=== PATIENT | male | born 1945 | race Caucasian/White ===

== ENCOUNTER → 2020-05-27 11:03 | Outpatient (BNVA) | payer MEDICARE, SELFPAY | PROVIDERS: PCP Pediatrics; Visit Provider Surgery Vascular Surgery | DX: I71.2 Thoracic aortic aneurysm, without rupture (principal) | CPT/HCPCS: 99202; 99212 ==

== ENCOUNTER 2020-06-03 10:29 | Outpatient (REF) | payer MEDICARE, SELFPAY ==
--- NOTE | 2020-06-03 10:31 | CT_ITS ---
EXAMINATION: CT CHEST WITHOUT CONTRAST CLINICAL INFORMATION: Thoracic aorta aneurysm without rupture. COMPARISON: Chest CT from 06/20/2018. TECHNIQUE: Multidetector volumetric CT imaging of the chest was done. Axial MIP volume rendering provided. Sagittal and coronal reformatted images were obtained. This CT examination was performed using dose optimization techniques as appropriate, variously including the following: *Automated exposure control *Adjustment of mA and/or kV according to patient size (this includes techniques or standardized protocols for targeted exams where dose is matched to indication/reason for exam; i.e. extremities or head) *Use of iterative reconstruction technique DLP: 227 mGy-cm FINDINGS: LUNGS AND PLEURA: Trachea and central airways are widely patent and normal in caliber. No pulmonary mass, consolidation or pleural effusion. The aeration of the left lower lobe has improved compared to 06/20/2018. A peripheral focus of residual atelectasis and/or focal fibrosis is present in the left lower lobe. There are a few old noncalcified and calcified bilateral pulmonary nodules, including 0.3 cm nodule of the lateral right upper lobe (image 180, series 7), and a nodule measuring nearly 0.4 cm in the anterior left upper lobe (image 112, series 7). No new nodules. No pleural effusion or pneumothorax. CARDIOVASCULAR: Mild atherosclerotic calcification of coronary arteries. Cardiac chambers and pulmonary arteries are normal in size. The aortic root measures 3.1 cm, and sinotubular junction 3 cm. At the level of the right pulmonary artery, the mildly dilated ascending aorta is 4.1 cm transverse, 4.1 cm AP (compared to 3.9 x 3.9 cm on 06/20/2018). Distal to the takeoff of the left subclavian artery, aortic arch is 2.9 cm. The descending aorta is tortuous. The proximal and distal descending aorta measure 3 cm and 2.7 cm short axis diameter, respectively. MEDIASTINUM AND LOWER NECK: Thyroid gland is atrophied. Moderate-sized sliding-type hiatal hernia of the stomach. No mediastinal mass. LYMPHATICS: No lymphadenopathy. UPPER ABDOMEN: Adrenal glands are normal. 2.9 cm simple cortical cyst at the upper pole of the left kidney. 1.2 cm simple cyst in the left lobe of the liver. There are several other small hypodense foci in the liver that are likely cysts but are difficult to definitively characterize. SKELETAL AND CHEST WALL: Chronic multilevel degenerative disc disease and hyperkyphosis of the thoracic spine. No aggressive osseous lesions. Old, healed fractures of the left posterior ninth and 10th ribs. Old bone island of the left posterior eighth rib. Mild osteoarthritis of bilateral glenohumeral and sternoclavicular joints. CT/CT chest wo con IMPRESSION: * The ectatic ascending thoracic aorta is 4.1 cm diameter, compared to 3.9 cm on 06/20/2018. * Small, benign calcified and noncalcified pulmonary nodules (stable compared to 06/20/2018). No new nodules. * Moderate sized hiatal hernia.
== END 2020-06-03 10:30 | disposition home or self-care (01) ==
LOC: HO.CT 10:29
PROVIDERS: Visit Provider Surgery Vascular Surgery
DX: I71.2 Thoracic aortic aneurysm, without rupture (principal)
CPT/HCPCS: 71250

== ENCOUNTER 2020-09-27 07:34 | Outpatient (REF) | payer MEDICARE, SELFPAY ==
[2020-09-27 10:31] LABS: SARS COV2 PCR INHOUSE NEGATIVE (Negative)
== END 2020-09-27 07:35 | disposition home or self-care (01) ==
LOC: HO.LAB 07:34
PROVIDERS: Visit Provider Internal Medicine
DX: Z20.822 Contact with and (suspected) exposure to COVID-19 (principal)
CPT/HCPCS: C9803; U0003

== ENCOUNTER 2024-08-18 10:29 | Outpatient (AMB) | payer MEDICARE, SELFPAY ==
--- NOTE | 2024-08-18 10:50 | MHC.OFFVIS ---
Vital Signs 08/18/24 10:59 Height 5 ft 11 in Weight 171 lb BMI 23.8 BP 134/75 Blood Pressure Location Rt brachial Position Sitting Pulse 70 Intake Visit Reasons: Skin Cancer on leg Intake Note: Patient referred by Dr. Miles for skin CA on rt leg. Reports lesion was present for 2yrs. Patient c/o: yellowish discharge. Wound care once a week. Bx report: 07-30-2024. Patient Care Specialist Required: No Accompanied by: spouse Malaika Allergies No Known Allergies [No Known Allergies*] Allergy (Verified 08/18/24 10:56) HPI Comments Details: Patient presents with a significant other. He has had a roughly 2 year history of a growth involving the anteromedial aspect of his right mid leg. He originally thought it was related to his heart/bypass surgery but this is not the case. He has no such lesions elsewhere. This has progressed and increased in size, and the patient and his significant other would like to have this removed. He has no such lesions elsewhere. 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 Social History (Updated 08/18/24 @ 10:59 by THIEN Jaimes) Alcohol intake: current Alcohol intake frequency: holidays/special occasions only Alcohol type: wine Patient Tobacco Use Status: Never used Tobacco Physical Exam Vital Signs: Last Vital Signs Pulse 70 08/18/24 10:59 BP 134/75 08/18/24 10:59 BMI result Body Mass Index 23.8 Chest Other: Chest sounds bilaterally, HS 1 in 2 GI Other: Abdomen is soft, benign Extrem Other: Patient has an exophytic ill-defined margin growth involving his anteromedial aspect of his right leg consistent with either basal cell or squamous cell carcinoma. Assessment & Plan Assessment & Plan (1) Skin cancer: Code(s): C44.90 - Unspecified malignant neoplasm of skin, unspecified Category: Surgical Plan Risks, benefits, alternatives of excision of this right leg skin tumor were reviewed with the patient and his significant other and included but not limited to bleeding, infection, recurrence, numbness, pain, scarring, and the patient wishes to proceed. All questions answered. Arrangements were made for this on a day which is convenient for him. Coding Level of Care Code New Pt Level 5 (31970) Diagnoses Skin cancer C44.90
[2024-08-18 10:59] VITALS: BP 134/75; PULSE 70; BMI 23.8
--- OUTSIDE RECORDS SUMMARY | 2024-08-18 11:47 | XMS_ITS | Clinical Summary ---
Author Organization [facility] [address] [facility] Address [address] [place] [address] Phone Care Team Providers Care Boat Engines Installer Name Role Phone Nydia Rai MD Primary Care Provider [phone] Allergies Active Allergy Reactions Criticality Noted Date Comments Pollen Extracts Unknown 03/15/2010 Medications coconut oiL 1,000 mg capsule Take by mouth. Active cyanocobalamin (VIT B-12) 1,000 mcg tablet extended release ER tablet Take 0.1 mg by mouth. Active yeaai-ze6-viv-e [id number] 1000-130(40-80) mg capsule Take by mouth. Active multivitamin (MULTI-DAY ORAL) Take 1 tablet by mouth. Active thiamine 100 mg tablet Take 1 tablet (100 mg total) by mouth 1 (one) time each day. Active Abrysvo 120 mcg/0.5 mL recon soln 04/12/2023 Active coenzyme Q-10 100 mg capsule Take 1 capsule (100 mg total) by mouth. Active metoprolol succinate (TOPROL-XL) 25 mg 24 hr tablet Take 0.5 tablets (12.5 mg total) by mouth. 12/15/2022 Active levETIRAcetam (KEPPRA) 500 mg tablet Take 1 tablet (500 mg total) by mouth 2 (two) times a day. Active diazePAM (VALIUM) 2 mg tablet Take 1 tablet (2 mg total) by mouth. Active clopidogreL (PLAVIX) 75 mg tablet Take 1 tablet (75 mg total) by mouth 1 (one) time each day. 12/15/2022 Active baclofen (LIORESAL) 10 mg tablet Take 1 tablet (10 mg total) by mouth. Active aspirin 81 mg EC tablet Take 1 tablet (81 mg total) by mouth 1 (one) time each day. 06/20/2022 Active ascorbic acid, vitamin C, 500 mg capsule Take by mouth. Active acetaminophen (TYLENOL) 325 mg tablet Take 2 tablets (650 mg total) by mouth. 12/02/2019 Active cholecalciferol (VITAMIN D-3) 10 mcg (400 unit) capsule Take 1 capsule (400 Units total) by mouth. Active furosemide (LASIX) 40 mg tablet TAKE 1 TABLET BY MOUTH DAILY NEEDED FOR SWELLING 90 tablet 06/19/2024 Active atorvastatin (LIPITOR) 80 mg tablet Take 1 tablet (80 mg total) by mouth 1 (one) time each day. 90 tablet 07/14/2024 Active omeprazole (PriLOSEC) [address] capsule Take 1 capsule (20 mg total) by mouth 1 (one) time each day. 90 capsule 07/14/2024 Active Active Problems Problem Noted Date Diagnosed Date Urinary tract infection, site not specified 11/2022 Overview (09/03/2023): hosp 07/17 urosepsis Weakness 07/19/2022 CAD (coronary artery disease) 07/05/2022 S/P CABG x 4 07/05/2022 Overview (09/03/2023): Done at [facility] on 05/23/22 with Raphael Barton - indications: CAD, NSTEMI SVT (supraventricular tachycardia) 07/05/2022 NSTEMI (non-ST elevated myocardial infarction) 1 07/24/2021 Overview (09/03/2023): Hosp 05/16. 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 06/11. Neurology [facility] [place]. IVIG Stiffman syndrome 05/31/2018 Overview (09/03/2023): Last Assessment & Plan: I think the diagnosis is correct, this is stiff person syndrome with elevated biju 65. It is frequently modestly responsive to IVIG, and he has improved after his initial dosing and one maintenance dose. He will continue to get monthly treatment and if his symptoms improved dramatically, that can be discontinued. We will then have to decide if a steroid sparing immunosuppressant is warranted for the longer term. Pain of right lower extremity 05/20/[address] scan, chest 07/23/2017 Overview (09/03/2023): 07/12. Abnormal bronchial thickening. 02/09 Stable, benign Dyspnea 12/29/2016 Overview (09/03/2023): 02/08- normal PFT 11/08 following episode pneumonia Echo neg. Mibi neg (7 mets), CT neg. H/O agent Forbes exposure 11/28/2016 Ascending aorta dilation 11/21/2016 Overview (09/03/2023): Seen on echocardiogram. 4.2 cm follow-up CT scan ordered 11/08 CT 12/09. 4.2 cm 06/10 stable. Recheck 1 yr 08/12 following with vascular surgery Dr. Jorgensen/Emanuel 02/09 CT stable. Recheck 12 months Per pt MRI 05/14 Abnormal CBC 10/26/2016 Overview (09/03/2023): 11/08- Myelocytes, suggestive of underlying viral infection- recheck at upcoming visit. Erectile dysfunction 12/07/2010 GERD (gastroesophageal reflux disease) 01/09/200 8 Overview (09/03/2023): 12/03---trial off med, sx recurred---need chronic omeprazole Allergic rhinitis 11/28/2005 Anemia 11/28/2005 Overview (09/03/2023): 1997--ulcer due to asa--GI rec no asa--continued due to strong FH CAD IMO Update Fall 2015 Chest pain 11/28/2005 Overview (09/03/2023): cath neg 12/09- neg nuclear stress test Genital herpes 11/28/2005 Overview (09/03/2023): Famvir prn IMO update Pure hypercholesterolemia 11/28/2005 Encounters Date Type Department Care Team Description 07/10/2024 Telephone [employer] - [facility] [address] [place] [address] Mendy Cifuentes [place] Medicare Annual Wellness Visit Subsequent (AWV DUE 2024) 06/23/2024 Telephone Adult Medicine - [place] [address] [place] [address] Nydia Rai MD orders 05/28/2024 Telephone Adult Medicine - [place] [address] [place] [address] Nydia Rai MD from Last 3 Months Surgical History Surgery Date Site/Laterality Comments COLONOSCOPY 12/03/2012 PROCEDURE: HISTORICAL COLONOSCOPY; COMMENT: adenomas; repeat in 3 yrs COLONOSCOPY 01/12/2017 PROCEDURE: HISTORICAL COLONOSCOPY; COMMENT: adenoma and tics; repeat in 5 yrs OTHER SURGICAL HISTORY PROCEDURE: HISTORICAL MELANOMA ESOPHAGOGASTRODUODENOSCOPY PROCEDURE: GA EGD TRANSORAL BIOPSY SINGLE/MULTIPLE; COMMENT: Performed in 2013 with colonoscopy CORONARY ARTERY BYPASS GRAFT 04/2022 PROCEDURE: HISTORICAL CABG CORONARY ARTERY BYPASS GRAFT 05/2022 PROCEDURE: HISTORICAL CABG Medical History Medical History Date Comments Abnormal CBC 10/26/2016 DX:Abnormal CBC; COMMENT: 11/08- Myelocytes, suggestive of underlying viral infection- recheck at upcoming visit. Abnormal CT scan, chest 07/23/2017 DX:Abnor mal CT scan, chest; COMMENT: 07/12. Abnormal bronchial thickening. 02/09 Stable, benign Allergic rhinitis 11/28/2005 DX:Allergic rh initis Anemia 11/28/2005 DX:Anemia; COMME NT: 1997--ulcer due to asa--GI rec no asa--continued due to strong FH CAD IMO Update Fall 2015 Ascending aorta dilation (CMS/HCC) 11/21/2016 DX:Ascending aorta dilation (HCC); COMMENT: Seen on echocardiogram. 4.2 cm follow-up CT scan ordered 11/08 CT 12/09. 4.2 cm 06/10 stable. Recheck 1 yr 08/12 following with vascular surgery Dr. Jorgensen/Emanuel 02/09 CT stable. Recheck 12 months Chest pain 11/28/2005 DX:Chest pain; C OMMENT: cath neg 12/09- neg nuclear stress test Special screening for malign ant neoplasms, colon 11/28/2005 DX:Special screening for mal ignant neoplasms, colon; COMMENT: 1990--small adenoma 02/26--next 12/06 adenoma x 3. Repeat 3 yrs 01/08. Colonoscopy. Polyp---. Repeat 5 yrs Diverticulosis 09/03/2018 DX:Diverticulosi s Dyspnea 12/29/2016 DX:Dyspnea; COMM ENT: 02/08- normal PFT 11/08 following episode pneumonia Echo neg. Mibi neg (7 mets), CT neg. Erectile dysfunction 12/07/2010 DX:Erectile dysfunction Family history of ischemic h eart disease 11/28/2005 DX:Family history of ischemi c heart disease; COMMENT: father and numerous brothers Genital herpes 11/28/2005 DX:Genital herpe s; COMMENT: Famvir prn IMO update GERD (gastroesophageal reflu x disease) 01/10/2008 DX:GERD (gastroesophageal re flux disease); COMMENT: 12/03---trial off med, sx recurred---need chronic omeprazole H/O agent Forbes exposure 11/28/2016 DX:H/O agent [place] exposure History of basal cell carcinoma 02/06/2011 DX:History of basal cell carcinoma; COMMENT: BCC 12/06 back (nodular & superficial) 02/02 chest (nodular) Kidney cyst, acquired 07/04/2018 DX:Kidney cyst, acquired; COMMENT: 05/12- [facility], left incidental finding on lumbar MRI 07/13- appear benign on renal ultrasound, clear, exophytic cysts Malignant neoplasm of prosta te (CMS/HCC) 06/12/2006 DX:Malignant neoplasm of pro state (HCC); COMMENT: 05/30--5.2--prostate cancer--TURP 10/29 Peripheral neuropathy 09/03/2018 DX:Periphe ral neuropathy; COMMENT: 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 06/11. neurology Agent orange exposure DX:Agent o range exposure Prostate cancer (CMS/HCC) DX:Pro state cancer (HCC) History of prostate cancer DX:Hi story of prostate cancer Tubular adenoma of colon DX:Tubu lar adenoma of colon CAD (coronary artery disease) 07/05/2022 DX :CAD (coronary artery disease) Family History Medical History Relation Name Comments Heart attack Brother Heart attack Father Coronary artery disease Mother Hypertension Other 1 Heart attack Other 2 Relation Name Status Comments Brother Father Mother Other 1 Other 2 Social History Tobacco Use Types Packs/Day Years Used Date Smoking Tobacco: Former Cigarettes Q uit: 06/25/1969 Smokeless Tobacco: Never Alcohol Use Standard Drinks/Week Comments Yes 0 (1 standard drink = 0.6 oz pur e alcohol) Sex and Gender Information Value Date Recorded Sex Assigned at Not on file Legal Sex Male 8:09 PM EST Gender Identity Not on file Sexual Orientation Not on file Obstetrics History Last Filed Vital Signs Vital Sign Reading Time Taken Comments Blood Pressure 96/52 12/31/2023 10:42 AM EDT Pulse 65 12/31/2023 10:42 AM EDT Temperature - - Respiratory Rate - - Oxygen Saturation - - Inhaled Oxygen Concentration - - Weight 72 kg (158 lb 12.8 oz) 12/31/2023 10:42 A M EDT Height 180.3 cm (5' 11 ) 12/31/2023 10:42 AM EDT Body Mass Index 22.15 12/31/2023 10:42 AM EDT Plan of Treatment Upcoming Encounters Date Type Department Care Team (Late st Contact Info) Description 08/21/2024 2:30 PM EST Office Visit Orthopedic Surgery - [place] [address] [address] Sergio Carrillo, DPM [address] [address] 08/26/2024 9:45 AM EST Office Visit Adult [facility] [address] [place] [address] William Sandoval PA [address] [place] [address] 01/05/2025 9:00 AM EDT Office Visit Adult Medicine [facility] [address] [place] [address] Nydia Rai MD [address] [place] [address] Health Maintenance Due Date Last Done Comments RSV Immunization Patients 60+ Years Old (1 - 1-dose 75+ series) 2021 Depression Screening 06/03/2022 Falls Risk Assessment 06/03/2022 Medicare Annual Wellness Visit 06/03/2022 Social Influencers of Health Screening 06/03/2022 COVID-19 Vaccine ( season) 2024 12/19/2021, 05/23/2021, 09/14/2020, Additional history exists Hypertension/CHF/CAD Annual BMP Blood Test 12/24/2024 12/25/2023, 09/29/2020, 09/01/2020, Additional history exists Colorectal Cancer Screening: Colonoscopy 01/12/2027 01/12/2017 Cholesterol Screening (Lipid Panel) 12/24/2028 12/25/2023, 12/19/2022 DTaP,Tdap,and Td Vaccines (4 - Td or Tdap) 03/11/2030 03/11/2020, 12/30/2009, 12/30/2009 Hepatitis C Screening Completed 06/16/2013 Pneumococcal Vaccine: 50+ Years Completed 11/19/2015, 06/14/2012, 06/14/2012 Zoster Vaccines Completed 04/05/2021, 01/24/2021 Influenza Vaccine Completed 04/07/2024, , 02/21/2022, Additional history exists HIB Vaccines Aged Out No longer eligi ble based on patient's age to complete this topic HPV Vaccines Aged Out No longer eligi ble based on patient's age to complete this topic Hepatitis A Vaccines Aged Out No long er eligible based on patient's age to complete this topic Hepatitis B Vaccines Aged Out No long er eligible based on patient's age to complete this topic IPV Vaccines Aged Out No longer eligi ble based on patient's age to complete this topic MMR Vaccines Aged Out No longer eligi ble based on patient's age to complete this topic Meningococcal ACWY Vaccine Aged Out N o longer eligible based on patient's age to complete this topic Meningococcal B Vacine Aged Out No lo nger eligible based on patient's age to complete this topic RSV Immunization Patients Under 20 months Aged Out No longer eligible based on patient's age to complete this topic Varicella Vaccines Aged Out No longer eligible based on patient's age to complete this topic Procedures Procedure Name Priority Date/Time Associated Diagnosis Comments LIPID PANEL Routine 12/19/2022 COLONOSCOPY Routine 01/12/2017 HEPATITIS C SCREENING Routine 06/16/2013 from Last 3 Months or Most Recently Relevant to Health Maintenance Results * Lipid panel (12/19/2022) Pathologist [facility] LDL/HDL Ratio 3 Triglycerides 63 mg/dL Cholesterol 135 mg/dL HDL 54 mg/dL LDL Cholesterol 69 mg/dL Blood Venous blood specimen / Unknown Historical Provider LAB BLOOD ORDERABLES Patsy l Result * Colonoscopy (01/12/2017) Pathologist [facility] Colonoscopy return in 5 years Anatomical Region Laterality Modality Other [facility] Provider HEALTH MAINTENANCE Final Result * Hepatitis C Screening (06/16/2013) [facility] Hepatitis C Screening negative [facility] Provider HEALTH MAINTENANCE Final Result from Last 3 Months or Most Recently Relevant to Health Maintenance Insurance MEDICARE [facility] Care Teams Boat Engines Installer Relationship Specialty Start Date End Date Nydia Rai MD [address] [place] [id number] PCP - General 12/18/1995
--- OUTSIDE RECORDS SUMMARY | 2024-08-18 11:47 | XMS_ITS | Encounter Summary ---
Author Organization [facility] [place] [address] Care Team Providers Care Die Stamping Press Operator Name Role Phone Nydia Rai MD Primary Care Provider [phone] Reason for Visit * Reason Onset Date Comments Medicare Annual Wellness Visit Subsequent 2024 AWV DUE 2024 Encounter Details Date Type Department Care Team (Late st Contact Info) Description 07/10/2024 Telephone [employer] - [facility] [address] [place] [phone] Mendy Cifuentes [place] Medicare Annual Wellness Visit Subsequent (AWV DUE 2024) Social History Tobacco Use Types Packs/Day Years [...] on file Sexual Orientation Not on file documented as of this encounter Progress Notes * Mendy Cifuentes [place] - 07/10/2024 4:15 PM EST Message left for patient to contact the Quality Department in reference to booking an Annual Wellness Visit appt misty/Kirti Wellness Nurse in 2024. Transfer to Mendy Cifuentes @ [id number]. Patient is on the March/2024 report. documented in this encounter Plan of Treatment Upcoming Encounters Date Type Department Care Team (Late st Contact Info) Description 08/21/2024 2:30 PM EST Office Visit Orthopedic Surgery - [place] [address] [address] Sergio Carrillo DPPaige [address] [address] 08/26/2024 9:45 AM EST Office Visit Adult Medicine [facility] [address] [place] [address] William Sandoval PA [address] [place] [address] 01/05/2025 9:00 AM EDT Office Visit Adult Medicine [facility] [address] [place] [address] Nydia Rai MD [address] [place] [address] documented as of this encounter Visit Diagnoses Not on filedocumented in this encounter Care Teams Die Stamping Press Operator Relationship Specialty Start Date End Date Nydia Rai MD [address] [place] [address] PCP - General 12/18/1995 documented as of this encounter
== END 2024-08-18 11:13 | disposition home or self-care (01) ==
PROVIDERS: PCP Pediatrics; Referring Provider Surgery; Visit Provider Surgery
DX: C44.90 Unspecified malignant neoplasm of skin, unspecified (principal)
CPT/HCPCS: 99204

== ENCOUNTER → 2024-08-18 10:29 | Outpatient (BNVA) | payer MEDICARE, SELFPAY | PROVIDERS: PCP Pediatrics; Referring Provider Surgery; Visit Provider Surgery | DX: C44.90 Unspecified malignant neoplasm of skin, unspecified (principal) | CPT/HCPCS: 99202 ==

== ENCOUNTER 2024-08-18 15:57 | Outpatient (RCR) | payer MEDICARE, SELFPAY | END 2024-09-18 15:20 | disposition short-term general hospital (02) | LOC: HO.WCC 15:57 | PROVIDERS: PCP Pediatrics; Visit Provider Surgery | DX: I87.311 Chronic venous hypertension (idiopathic) with ulcer of right lower extremity (principal); L97.812 Non-pressure chronic ulcer of other part of right lower leg with fat layer exposed; C44.712 Basal cell carcinoma of skin of right lower limb, including hip; L98.0 Pyogenic granuloma; G25.82 Stiff-man syndrome; I25.2 Old myocardial infarction; Z87.891 Personal history of nicotine dependence | CPT/HCPCS: 11106; 88304; 88305; 99212 ==

== ENCOUNTER 2024-10-10 05:52 | Day surgery (SDC) | payer MEDICARE, SELFPAY ==
--- OUTSIDE RECORDS SUMMARY | 2024-09-23 09:20 | XMS_ITS | Encounter Summary ---
Author Organization [facility] Address [address] [place] [address] Care Team Providers Care Tube Dispatcher Name Role Phone Nydia Rai MD Primary Care Provider [phone] Reason for Referral * Imaging (Routine) - Closed Specialty Diagnoses / Procedures Referred By Contac t Referred To Contact Cardiology Diagnoses Coronary artery disease, unspecified vessel or lesion type, unspecified whether angina present, unspecified whether lower brule or transplanted heart Procedures Transthoracic echocardiogram (TTE) complete with PRN contrast, bubble, strain, and 3D order panel AL TTE W 2D IMAGE COMPLETE W DOPPLER ECHO & COLOR FLOW DOPPLER ECHO AL REFUGIO 2D COMPLETE W/CONTRAST OR W & WO CONTRAST WITH DOPPLER Donavon Aguiar NP [address] [place] [address] [address] [place] [address] Phone: tel: fax: [facility] Referral ID Status Reason Start Date Expiration Date Visits Re quested Visits Authorized [id number] Closed 09/11/2024 09/11/2025 1 1 Reason for Visit * Reason Comments Follow-up Encounter Details Date Type Department Care Team (Latest Contact Info) Description 09/11/2024 12:40 PM EDT Consult [facility] Cardiology [facility] [address] [place] [phone] Donavon Aguiar NP [address] [place] [address] [place] [address] Preop cardiovascular exam (Primary Dx); Coronary artery disease, unspecified vessel or lesion type, unspecified whether angina present, unspecified whether lower brule or transplanted heart; Pure hypercholesterolemia Social History Tobacco Use Types Packs/Day Years [...] on file documented as of this encounter Last Filed Vital Signs Vital Sign Reading Time Taken Comments Blood Pressure 100/68 09/11/2024 12:25 PM EDT Pulse 73 09/11/2024 12:25 PM EDT Temperature - - Respiratory Rate - - Oxygen Saturation 97% 09/11/2024 12:25 PM EDT Inhaled Oxygen Concentration - - Weight 78.9 kg (174 lb) 09/11/2024 12:25 PM EDT Height 180.3 cm (5' 11 ) 09/11/2024 12:25 PM EDT Body Mass Index 24.27 09/11/2024 12:25 PM EDT documented in this encounter Ordered Prescriptions Prescription Sig Dispense Quantity Refills Last Filled Start Date End Date metoprolol succinate (TOPROL-XL) 25 mg 24 hr tabletIndications: Coronary artery disease, unspecified vessel or lesion type, unspecified whether angina present, unspecified whether lower brule or transplanted heart Take 0.5 tablets (12.5 mg total) by mouth 2 (two) times a day. 90 tablet 3 09/11/2024 atorvastatin (LIPITOR) 80 mg tabletIndications: Coronary artery disease, unspecified vessel or lesion type, unspecified whether angina present, unspecified whether lower brule or transplanted heart Take 1 tablet (80 mg total) by mouth 1 (one) time each day. 90 tablet 3 09/11/2024 clopidogreL (PLAVIX) 75 mg tabletIndications: Coronary artery disease, unspecified vessel or lesion type, unspecified whether angina present, unspecified whether lower brule or transplanted heart Take 1 tablet (75 mg total) by mouth 1 (one) time each day. 90 tablet 3 09/11/2024 documented in this encounter Progress Notes * Donavon Aguiar NP - 09/11/2024 12:40 PM EDTAssociated Problem(s): CAD (coronary artery disease) Underwent successful four vessel CABG in 2021. He has preserved LV systolic function on 2021 echocardiogram. No anginal symptoms. Will update echocardiogram due to lower blood pressure, but otherwisethis condition is stable. Continue with aspirin, atorvastatin and metoprolol. We discussed risk reduction through lifestyle choices including healthy diet, routine exercise and weight management. Orders: ECG 12 lead atorvastatin (LIPITOR) 80 mg tablet; Take 1 tablet (80 mg total) by mouth 1 (one) time each day. metoprolol succinate (TOPROL-XL) 25 mg 24 hr tablet; Take 0.5 tablets (12.5 mg total) by mouth 2 (two) times a day. Transthoracic echocardiogram (TTE) complete with PRN contrast, bubble, strain, and 3D order panel; Future * Donavon Aguiar NP - 09/11/2024 12:40 PM EDTAssociated Problem(s): Pure hypercholesterolemia August 2024 - LDL 68. Continue with atorvastatin. * Donavon Aguiar NP - 09/11/2024 12:40 PM EDTAssociated Problem(s): Preop cardiovascular exam Per the Bruce cardiac risk index the patient is low risk for upcoming procedure. More recently has had lower blood pressures which is rather unusual for him without a clear cause -good p.o. intake, no medication changes and no other cardiac symptoms. I am recommending an echocardiogram which she will get this afternoon. If this has no significant abnormalities then he is good from our standpoint to move forward with his surgery. He may hold his aspirin if necessary but otherwise he should continue it. He should remain on metoprolol perioperatively. Please avoid large fluid shifts, sustained tachycardia or profound anemia in order to prevent demand ischemic events. * Donavon Aguiar NP - 09/11/2024 12:40 PM EDT Images from the original note were not included. 09/18/24 - Reviewed echocardiogram and this showed preserved LV systolic function with no major valve issues. No reasons based on this study to avoid surgery. Please see preop cardiovascular exam section below for other recommendations, but essentially is able to proceed with surgery. [facility] PRIMARY JAVA LEAD ARCHITECT: Dejuan Joyce MD PCP: Nydia Rai MD HPI: I have obtained verbal consent from Tanner Renee Hoffman prior to the recording. I have advised Tanner Lepeley that he may refuse the recording and require the recording to be turned off at any time duringthis encounter. History of Present Illness Mr. Hoffman is a 78-year-old male with past medical history of coronary artery disease status post NSTEMI with subsequent urgent four-vessel coronary artery bypass grafting with MTZ to LAD, SVG to PDA, SVG to OM and SVG to diagonal, stiff man syndrome, history of urosepsis, hyperlipidemia, prostatecancer status post prostatectomy, and remote smoking history. Today the patient presents for a preoperative cardiovascular evaluation. He reports no cardiac symptoms of concern. However, he has experienced elevated blood pressure readings, with a recent readingof 127/78, which is a significant increase from his usual range in the low 100s. He is not experiencing any associated symptoms such as lightheadedness, dizziness, or wooziness. His weight has been gradually increasing at a rate of approximately 1 pound every 1.5 months. He reports no changes in his medication regimen or doubling up on medications. His mobility is limited due to his leg condition, making it difficult for him to ascend a flight of stairs. He reports no systemic symptoms such as fevers, chills, sweats, or signs of infection. He has been adhering to his prescribed medication regimen, which includes furosemide once daily and metoprolol half a tablet twice daily. His appetite and hydration status remain unchanged. He reports no chest pain, pressure, palpitations, or fluttering sensations. He has a basal cell carcinoma on his leg that needs to be removed. He has noticed pus coming from the wound. He has been advised to consult a catering service manager due to concerns about his platelet count. He is currently not on clopidogrel, having discontinued it in 04/2023 after a year of use. He is currently on aspirin therapy. He has observed swelling in his ankles, which has persisted for over a month. The use of pressure stockings has not resulted in significant improvement. No chest pain, palpitations, lightheadedness, presyncope or syncope. No orthopnea, paroxysmal nocturnal dyspnea, abdominal distention, cough or abrupt increases in weight. The patient reports adherence with their medications. ACTIVE MEDICATIONS: Outpatient Medications Marked as Taking for the 09/11/24 encounter (Consult) with Donavon Aguiar NP Medication Sig Dispense Refill Abrysvo 120 mcg/0.5 mL recon soln acetaminophen (TYLENOL) 325 mg tablet Take 2 tablets (650 mg total) by mouth. ascorbic acid, vitamin C, 500 mg capsule Take by mouth. aspirin 81 mg EC tablet Take 1 tablet (81 mg total) by mouth 1 (one) time each day. Take 1 tablet (81 mg total) by mouth 1 (one) time each day. 90 tablet 1 atorvastatin (LIPITOR) 80 mg tablet Take 1 tablet (80 mg total) by mouth 1 (one) time each day. 90 tablet 3 baclofen (LIORESAL) 10 mg tablet Take 1 tablet (10 mg total) by mouth 3 (three) times a day. cholecalciferol (VITAMIN D-3) 10 mcg (400 unit) capsule Take 1 capsule (400 Units total) by mouth. coenzyme Q-10 100 mg capsule Take 1 capsule (100 mg total) by mouth. diazePAM (VALIUM) 2 mg tablet Take 1 tablet (2 mg total) by mouth 2 (two) times a day. furosemide (LASIX) 40 mg tablet Take 1 tablet (40 mg total) by mouth 1 (one) time each day if needed (prn for swelling). TAKE 1 TABLET BY MOUTH DAILY NEEDED FOR SWELLING (Patient taking differently: Take 1 tablet (40 mg total) by mouth 1 (one) time each day. TAKE 1 TABLET BY MOUTH DAILY NEEDED FOR SWELLING) 90 tablet 1 levETIRAcetam (KEPPRA) 500 mg tablet Take 1 tablet (500 mg total) by mouth 2 (two) times a day. metoprolol succinate (TOPROL-XL) 25 mg 24 hr tablet Take 0.5 tablets (12.5 mg total) by mouth 2 (two) times a day. 90 tablet 3 multivitamin (MULTI-DAY ORAL) Take 1 tablet by mouth. omeprazole (PriLOSEC) [address] capsule Take 1 capsule (20 mg total) by mouth 1 (one) time each day.90 capsule 0 thiamine 100 mg tablet Take 1 tablet (100 mg total) by mouth 1 (one) time each day. [DISCONTINUED] atorvastatin (LIPITOR) 80 mg tablet Take 1 tablet (80 mg total) by mouth 1 (one) time each day. 90 tablet 1 [DISCONTINUED] clopidogreL (PLAVIX) 75 mg tablet Take 1 tablet (75 mg total) by mouth 1 (one) time each day. [DISCONTINUED] clopidogreL (PLAVIX) 75 mg tablet Take 1 tablet (75 mg total) by mouth 1 (one) time each day. 90 tablet 3 [DISCONTINUED] metoprolol succinate (TOPROL-XL) 25 mg 24 hr tablet Take 0.5 tablets (12.5 mg total)by mouth 2 (two) times a day. PAST MEDICAL HISTORY: Patient Active Problem List Diagnosis Date Noted Date Diagnosed Preop cardiovascular exam 09/11/2024 Urinary tract infection, site not specified 07/31/2022 hosp 07/17 urosepsis Weakness 07/19/2022 CAD (coronary artery disease) 07/05/2022 - NSTEMI with subsequent urgent four-vessel coronary artery bypass grafting with LIMAto LAD, SVG to PDA, SVG to OM and SVG to diagonal April 2022 - echocardiogram showed preserved LV systolic function LVEF 60- 65%, no significant regional wall motion abnormalities, mild diastolic dysfunction, no evidence of LVOT obstruction, normal biatrial size, mild TR S/P CABG x 4 07/05/2022 Done at [facility] on 05/23/22 with Raphael Barton - indications: CAD, NSTEMI SVT (supraventricular tachycardia) ([facility]) 07/05/2022 NSTEMI (non-ST elevated myocardial infarction) ([facility]) 05/24/2022 Hosp 05/16. 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 06/11. Neurology [facility]. IVIG Stiffman syndrome 05/31/2018 Pain of right lower extremity 05/20/[address] scan, chest 07/23/2017 07/12. Abnormal bronchial thickening. 02/09 Stable, benign Dyspnea 12/29/2016 02/08- normal PFT 11/08 following episode pneumonia Echo neg. Mibi neg (7 mets), CT neg. H/O agent Bowman exposure 11/28/2016 Ascending aorta dilation ([facility]) 11/21/2016 Seen on echocardiogram. 4.2 cm follow-up CT scan ordered 11/08 CT 12/09. 4.2 cm 06/10 stable. Recheck 1 yr 08/12 following with vascular surgery Dr. Jorgensen/Emanuel 02/09 CT stable. Recheck 12 months Per pt MRI 05/14 Abnormal CBC 10/26/2016 11/08- Myelocytes, suggestive of underlying viral infection- recheck at upcoming visit. Erectile dysfunction 12/07/2010 GERD (gastroesophageal reflux disease) 01/10/2008 12/03---trial off med, sx recurred---need chronic omeprazole Allergic rhinitis 11/28/2005 Anemia 11/28/2005 1997--ulcer due to asa--GI rec no asa--continued due to strong FH CAD IMO Update Fall 2015 Chest pain 11/28/2005 cath neg 12/09- neg nuclear stress test Genital herpes 11/28/2005 Famvir prn IMO update Pure hypercholesterolemia 11/28/2005 Resolved Problems No resolved problems to display. ALLERGIES: Allergies Allergen Reactions Pollen Extracts Unknown SOCIAL HISTORY: Social History Tobacco Use Smoking status: Former Current packs/day: 0.00 Types: Cigarettes Quit date: 06/25/1969 Years since quittin.2 Smokeless tobacco: Never Substance Use Topics Alcohol use: Yes PHYSICAL EXAM: Vitals: 09/11/24 1225 BP: 100/68 BP Location: Left arm Patient Position: Sitting BP Cuff Size: Adult Pulse: 73 SpO2: 97% Weight: 78.9 kg (174 lb) Height: 1.803 m (71 ) Physical Exam Constitutional: General: He is not in acute distress. HENT: Head: Normocephalic and atraumatic. Right Ear: External ear normal. Left Ear: External ear normal. Nose: Nose normal. Mouth/Throat: Mouth: Mucous membranes are moist. Pharynx: No oropharyngeal exudate or posterior oropharyngeal erythema. Eyes: General: No scleral icterus. Extraocular Movements: Extraocular movements intact. Conjunctiva/sclera: Conjunctivae normal. Pupils: Pupils are equal, round, and reactive to light. Neck: Vascular: No carotid bruit, hepatojugular reflux or JVD. Cardiovascular: Rate and Rhythm: Normal rate and regular rhythm. Pulses: Normal pulses. Heart sounds: Normal heart sounds. No murmur heard. No friction rub. No gallop. Pulmonary: Effort: Pulmonary effort is normal. Breath sounds: Normal breath sounds. Chest: Chest wall: No tenderness. Abdominal: General: Bowel sounds are normal. There is no distension. Palpations: Abdomen is soft. Tenderness: There is no abdominal tenderness. Musculoskeletal: Cervical back: Neck supple. Right lower leg: No edema. Left lower leg: No edema. Skin: General: Skin is warm and dry. Neurological: General: No focal deficit present. Mental Status: He is alert and oriented to person, place, and time. Gait: Gait abnormal. Comments: Unsteady gait, stiff movements, uses cane Psychiatric: Mood and Affect: Mood normal. Behavior: Behavior normal. EKG: Encounter Date: 09/11/24 ECG 12 lead Result Value Ventricular Rate ECG 66 Atrial Rate 66 P-R Interval 302 QRS Duration 82 Q-T Interval 370 QTc 387 P Wave Mears 55 R Mears 14 T Mears 56 ECG Interpretation Sinus rhythm with 1st degree A-V block Cannot rule out Anteroseptal infarct , age undetermined Abnormal ECG When compared with ECG of 11-NOV-2000 12:42, AL interval has increased Minimal criteria for Anteroseptal infarct are now Present *Note: Due to a large number of results and/or encounters for the requested time period, some results have not been displayed. A complete set of results can be found in Results Review. TESTING: Labs available were reviewed. ASSESSMENT/PLAN: Assessment & Plan Preop cardiovascular exam Per the Bruce cardiac risk index the patient is low risk for upcoming procedure. More recently has had lower blood pressures which is rather unusual for him without a clear cause -good p.o. intake, no medication changes and no other cardiac symptoms. I am recommending an echocardiogram which she will get this afternoon. If this has no significant abnormalities then he is good from our standpoint to move forward with his surgery. He may hold his aspirin if necessary but otherwise he should continue it. He should remain on metoprolol perioperatively. Please avoid large fluid shifts, sustained tachycardia or profound anemia in order to prevent demand ischemic events. Coronary artery disease, unspecified vessel or lesion type, unspecified whether angina present, unspecified whether lower brule or transplanted heart Underwent successful four vessel CABG in 2021. He has preserved LV systolic function on 202 echocardiogram. No anginal symptoms. Will update echocardiogram due to lower blood pressure, but otherwisethis condition is stable. Continue with aspirin, atorvastatin and metoprolol. We discussed risk reduction through lifestyle choices including healthy diet, routine exercise and weight management. Orders: ECG 12 lead atorvastatin (LIPITOR) 80 mg tablet; Take 1 tablet (80 mg total) by mouth 1 (one) time each day. metoprolol succinate (TOPROL-XL) 25 mg 24 hr tablet; Take 0.5 tablets (12.5 mg total) by mouth 2 (two) times a day. Transthoracic echocardiogram (TTE) complete with PRN contrast, bubble, strain, and 3D order panel; Future Pure hypercholesterolemia August 2024 - LDL 68. Continue with atorvastatin. Thank you for allowing us to participate in the care of this patient. The patient will follow up insix months with Dr. Joyce, sooner PRN. As per AHA guidelines and previously established plan of care by Dr. Dejuan Joyce MD, we discussed the following today: 1. Preop cardiovascular exam 2. Coronary artery disease, unspecified vessel or lesion type, unspecified whether angina present, unspecified whether lower brule or transplanted heart 3. Pure hypercholesterolemia [facility] documented in this encounter Plan of Treatment Upcoming Encounters Date Type Department Care Team (Late st Contact Info) Description 11/18/2024 9:00 AM EDT Office Visit Orthopedic Surgery - [place] [address] [phone] Sergio Carrillo, DPM [address] [address] 01/05/2025 9:00 AM EDT Office Visit Adult Medicine [facility] [address] [place] [phone] Nydia Rai MD [address] [place] [address] documented as of this encounter Procedures Procedure Name Priority Date/Time Associated Diagnosis Comments ECG 12-LEAD Routine 09/11/2024 2:03 PM EDT Coronary artery disease, unspecified vessel or lesion type, unspecified whether angina present, unspecified whether lower brule or transplanted heart documented in this encounter Results * (ABNORMAL) TRANSTHORACIC ECHOCARDIOGRAM (TTE) COMPLETE (09/11/2024 3:29 PM EDT) Left Atrium Major Mears 6.2 cm CV PACS LA Area Sys (A4C) 20 cm2 CV PACS RA Area 17.3 cm2 CV PACS RA 2D Volume 43 mL CV PACS AV Mean Gradient 5 mmHg CV PACS Ao VTI 26.5 cm CV PACS AV Peak Bull 1.6 m/s CV PACS AV Peak Gradient 10 mmHg CV PACS AV Area Continuity Equation 2.9 cm2 CV PACS AV Area Peak Velocity 2.4 cm2 CV PACS Aortic Sinus Valsalva 3.5 cm CV PACS Ascending Aorta 4.5 cm CV PACS IVSD 2.0(A) 0.6 - 1.0 cm CV PACS LVIDD 3.7(A) 4.2 - 5.8 cm CV PACS LVIDS 2.8 2.5 - 4.0 cm CV PACS LVOT Diameter 2.0 cm CV PACS LVOT Mean Bull 0.9 m/s CV PACS LVOT Mean Grad 4 mmHg CV PACS LVOT Peak VTI 24.1 cm CV PACS LVOT Peak Bull 1.2 m/s CV PACS LVOT Peak Gradient 6 mmHg CV PACS LVPWD 1.4(A) 0.6 - 1.0 cm CV PACS MV E' Tissue Velocity Lateral 7 cm/s CV PACS MV E' Tissue Velocity Septal 5 cm/s CV PACS LVOT Area 3.1 cm2 CV PACS LVOT Stroke Volume 76 mL CV PACS MV Deceleration [place] 2.4 m/s2 CV PACS E Wave Deceleration Time 303(A) 119 - 242 ms CV PACS MV PHT 88 ms CV PACS MV Peak A Bull 0.70 m/s CV PACS MV Peak E Bull 0.70 m/s CV PACS MV Area PHT 2.5 cm2 CV PACS PV Acceleration Time 162 ms CV PACS RV Diastolic Basal Dimension 3.4 2.5 - 4.1 cm CV PACS RV S' 6 cm/s CV PACS TAPSE 12 mm CV PACS TR Peak Velocity 2.10 m/s CV PACS TR Peak Gradient 18 mmHg CV PACS E/E' Ratio Septal 14 CV PACS E/E' Ratio Averaged 12 CV PACS LVOT Stroke Index 38 mL/m2 CV PACS Relative Wall Thickness ratio 0.76(A) 0.24 - 0.42 CV PACS LVOT:AV VTI Index 0.91 CV PACS FS 24 % CV PACS LV Mass 2D 256(A) 96 - 200 g CV PACS Ascending Aorta Index 2.25 cm/m2 CV PACS LVOT flow 283 mL/s CV PACS RA 2D Volume Index 22 18 - 32 mL/m2 CV PACS GERMANIA Index (VTI) 1.43 cm2/m2 CV PACS GERMANIA Index (Pk Bull) 1.20 cm2/m2 CV PACS LVIDD Index 1.85 cm/m2 CV PACS LVIDS Index 1.40 cm/m2 CV PACS AV Velocity Ratio 0.75 CV PACS E/A Ratio 1.0 0.8 - 2.0 CV PACS E/E' Ratio Lateral 10 CV PACS LV Mass Index 2D 128 50 - 102 g/m2 CV PACS BSA 2.01 m2 CV PACS LA Volume (BP) 51 mL CV PACS LA Volume Index (BP) 26 mL/m2 CV PACS LA Area Sys (A2C) 19 cm2 CV PACS RV Free Wall Peak S' 6 cm/s CV PACS RA Major Mears 5.8 cm CV PACS RA Major Mears Index 2.9(A) 2.1 - 2.7 cm/m2 CV PACS AV Area 2D 2.4 cm2 CV PACS GERMANIA Index (2D) 1.20 cm2/m2 CV PACS AV Area Index 1.2 CV PACS Anatomical Region Laterality Modality Ultrasound Narrative 09/15/2024 9:40 AM EDT Left ventricle cavity is small. There is moderate hypertrophy. Severe basal septal hypertrophy. Systolic function is normal with an ejection fraction of 55-60% Observed mid cavity and LVOT gradients are not significant. No hemodynamically significant valvular dysfunction Ascending aorta dilatation 4.5 cm There is no prior study available for direct comparison Left Ventricle Left ventricle cavity is small. There is moderate hypertrophy. Severe basal septal hypertrophy. Systolic function is normal with an ejection fraction of 55-60%. Mid-cavity gradient of 3mmHg that increases to 13mmHg upon Valsalva. Mild LVOT gradient at rest of 6mmHg that increases to 8mmHg upon Valsalva. Hypokinesis of basal to mid inferior and the basal to mid septum. Abnormal LV diastolic function. Global longitudinal strain is -17.5%. Right Ventricle Right ventricle cavity appears normal. Systolic function is reduced. Left Atrium Left atrium cavity size is normal. Right Atrium Right atrium cavity is normal. IVC/SVC Inferior vena cava was not well visualized. Mitral Valve The leaflets are mildly thickened. There is mild regurgitation. There is no evidence of mitral valve stenosis. There is systolic anterior motion of the anterior leaflet. Tricuspid Valve The leaflets exhibit normal excursion. There is mild regurgitation. Aortic Valve The aortic valve is trileaflet. The leaflets are mildly thickened. There is no regurgitation or stenosis. Pulmonic Valve Pulmonic valve structure is normal. There is trace pulmonic valve regurgitation. Ascending Aorta The Sinus of Valsalva is normal. The ascending aorta is (4.5 cm). Pericardium There is no pericardial effusion. Study Details Overall the study quality was technically difficult. Donavon Aguiar NP CV ECHO PROCEDURES Final Re sult * ECG 12 lead (09/11/2024 2:03 PM EDT) Ventricular Rate ECG 66 BPM GEMUSE Atrial Rate 66 BPM GEMUSE P-R Interval 302 ms GEMUSE QRS Duration 82 ms GEMUSE Q-T Interval 370 ms GEMUSE QTc 387 ms GEMUSE P Wave Mears 55 degrees GEMUSE R Mears 14 degrees GEMUSE T Mears 56 degrees GEMUSE ECG Interpretation Sinus rhythm with 1st degree A-V block Cannot rule out Anteroseptal infarct , age undetermined Abnormal ECG When compared with ECG of 11-NOV-2000 12:42, AL interval has increased Minimal criteria for Anteroseptal infarct are now Present Confirmed by HERMINIO DOZIER ([id number]) on 09/12/2024 9:27:33 AM GEMUSE 09/11/2024 12:3 0 PM EDT 09/12/2024 9:27 AM EDT Donavon Aguiar NP ECG ORDERABLES Edited Resu lt - Final GEMUSE documented in this encounter Visit Diagnoses Diagnosis Preop cardiovascular exam- Primary Pre-operative cardiovascular examination Coronary artery disease, unspecified vessel or lesion type, unspecified whether angina present, unspecified whether lower brule or transplanted heart Pure hypercholesterolemia Coronary artery disease, unspecified vessel or lesion type, unspecified whether angina present, unspecified whether lower brule or transplanted heart documented in this encounter Discontinued Medications Medication Sig Discontinue Reason Start Date End Da te metoprolol succinate (TOPROL-XL) 25 mg 24 hr tablet Take 0.5 tablets (12.5 mg total) by mouth 2 (two) times a day. Reorder 12/15/2022 09/11/2024 clopidogreL (PLAVIX) 75 mg tablet Take 1 tablet (75 mg total) by mouth 1 (one) time each day. Reorder 12/15/2022 09/11/2024 atorvastatin (LIPITOR) 80 mg tablet Take 1 tablet (80 mg total) by mouth 1 (one) time each day. Reorder 08/26/2024 09/11/2024 coconut oiL 1,000 mg capsule Take by mouth. Therapy completed 09/11/2024 [id number]-[id number]-epa-[id number]-lip -astx 1000-130(40-80) mg capsule Take by mouth. Therapy completed 09/11/2024 clopidogreL (PLAVIX) 75 mg tabletIndications:Coronar y artery disease, unspecified vessel or lesion type, unspecified whether angina present, unspecified whether lower brule or transplanted heart Take 1 tablet (75 mg total) by mouth 1 (one) time each day. Formulary change 09/11/2024 09/11/2024 documented as of this encounter Care Teams Tube Dispatcher Relationship Specialty Start Date End Date Nydia Rai MD [facility] [place] [address] PCP - General 12/18/1995 documented as of this encounter
--- OUTSIDE RECORDS SUMMARY | 2024-09-23 09:20 | XMS_ITS | Encounter Summary ---
Author Organization [facility] Address [address] [place] [address] Care Team Providers Care Paste Worker Name Role Phone Nydia Rai MD Primary Care Provider [phone] Reason for Visit * Reason Onset Date Comments echo results 09/18/2024 Encounter Details Date Type Department Care Team (Late st Contact Info) Description 09/18/2024 Telephone [facility] Cardiology [facility] [address] [place] [phone] Donavon Aguiar NP [address] [place] [address] [address] [place] [address] echo results Social History Tobacco Use Types Packs/Day Years [...] as of this encounter Progress Notes * Richa Power RN - 09/22/2024 2:31 PM EDT I spoke to Reynaldo, faxed this encounter to her, and received confirmation. * Wendi Callahan - 09/22/2024 1:56 PM EDT Reynaldo from [facility] called after reviewing patients echo and wanted to confirm his aorta dilation and if he is still clear for his surgery. Please give her a call back at [phone]. * Donavon Aguiar NP - 09/18/2024 2:44 PM EDT Spoke with patient's and reviewed echocardiogram. He is fine to move forward with surgery. * Tereso Headley - 09/18/2024 10:23 AM EDT Patients Malaika called today and requests we call her back with the results from [facility] 09/11/[address] Ulrich. Please call her back at [phone] to discuss results and next steps. documented in this encounter Plan of Treatment Upcoming Encounters Date Type Department Care Team (Late st Contact Info) Description 11/18/2024 9:00 AM EDT Office Visit Orthopedic Surgery - [place] [address] [phone] Sergio Carrillo, DPPaige [address] [address] 01/05/2025 9:00 AM EDT Office Visit Adult Medicine - [place] [address] [place] [address] Nydia Rai MD [address] [place] [address] documented as of this encounter Visit Diagnoses Not on filedocumented in this encounter Care Teams Paste Worker Relationship Specialty Start Date End Date Nydia Rai MD [address] [place] [address] PCP - General 12/18/1995 documented as of this encounter
--- OUTSIDE RECORDS SUMMARY | 2024-09-23 09:20 | XMS_ITS | Encounter Summary ---
Author Organization [facility] Address [address] [place] [address] Care Team Providers Care Junior Qa Analyst Name Role Phone Nydia Rai MD Primary Care Provider [phone] Reason for Visit * Reason Onset Date Comments medical records 09/19/2024 Encounter Details Date Type Department Care Team (Late st Contact Info) Description 09/19/2024 Telephone [facility] Cardiology [facility] [address] [place] [address] [place] [address] Donavon Aguiar NP [address] [place] [address] [address] [place] [address] medical records Social History Tobacco Use Types Packs/Day Years [...] as of this encounter Progress Notes * Pamela Shaffer - 09/19/2024 1:19 PM EDT Medical Records Request Caller: Reynaldo Calling from: [facility] Requesting provider's first & last name: Dr. Hinojosa Direct Phone Number or Ext: [phone] What records are being requested: office notes How far back: 09/11/24 What is it for: surgery clearance Needed by: tuan documented in this encounter Plan of Treatment Upcoming Encounters Date Type Department Care Team (Late st Contact Info) Description 11/18/2024 9:00 AM EDT Office Visit Orthopedic Surgery - [place] [address] [phone] Sergio Carrillo DPM [address] [address] 01/05/2025 9:00 AM EDT Office Visit Adult Medicine - [place] [address] [place] [address] Nydia Rai MD [address] [place] [address] documented as of this encounter Visit Diagnoses Not on filedocumented in this encounter Care Teams Junior Qa Analyst Relationship Specialty Start Date End Date Nydia Rai MD [address] [place] [address] PCP - General 12/18/1995 documented as of this encounter
--- OUTSIDE RECORDS SUMMARY | 2024-09-23 09:20 | XMS_ITS | Clinical Summary ---
Author Organization [facility] [address] [facility] Address [address] [place] [address] Phone Care Team Providers Care Health Claims Examiner Name Role Phone Nydia Rai MD Primary Care Provider [phone] Allergies Active Allergy Reactions Criticality Noted Date Comments Pollen Extracts Unknown 03/15/2010 Medications cyanocobalamin (VIT B-12) 1,000 mcg tablet extended release ER tablet Take 0.1 mg by mouth. Active multivitamin (MULTI-DAY ORAL) Take 1 tablet by mouth. Active thiamine 100 mg tablet Take 1 tablet (100 mg total) by mouth 1 (one) time each day. Active Abrysvo 120 mcg/0.5 mL recon soln 04/12/20 23 Active coenzyme Q-10 100 mg capsule Take 1 capsule (100 mg total) by mouth. Active levETIRAcetam (KEPPRA) 500 mg tablet Take 1 tablet (500 mg total) by mouth 2 (two) times a day. Active diazePAM (VALIUM) 2 mg tablet Take 1 tablet (2 mg total) by mouth 2 (two) times a day. Active baclofen (LIORESAL) 10 mg tablet Take 1 tablet (10 mg total) by mouth 3 (three) times a day. Active ascorbic acid, vitamin C, 500 mg capsule Take by mouth. Acti ve acetaminophen (TYLENOL) 325 mg tablet Take 2 tablets (650 mg total) by mouth. 12/02/19 20 Active cholecalciferol (VITAMIN D-3) 10 mcg (400 unit) capsule Take 1 capsule (400 Units total) by mouth. Active omeprazole (PriLOSEC) [address] capsule Take 1 capsule (20 mg total) by mouth 1 (one) time each day. 90 capsule 08/27/19 25 Active aspirin 81 mg EC tablet Take 1 tablet (81 mg total) by mouth 1 (one) time each day. Take 1 tablet (81 mg total) by mouth 1 (one) time each day. 90 tablet 1 08/27/19 25 Active furosemide (LASIX) 40 mg tablet Take 1 tablet (40 mg total) by mouth 1 (one) time each day if needed (prn for swelling). TAKE 1 TABLET BY MOUTH DAILY NEEDED FOR SWELLING 90 tablet 1 08/27/19 25 Active Additional Information Patient taking differently:40 mg oralDaily, TAKE 1 TABLET BY MOUTH DAILY NEEDED FOR SWELLING, Reported on 09/11/2024 atorvastatin (LIPITOR) 80 mg tabletIndication s:Coronary artery disease, unspecified vessel or lesion type, unspecified whether angina present, unspecified whether [place] or transplanted heart Take 1 tablet (80 mg total) by mouth 1 (one) time each day. 90 tablet 3 09/12/19 25 Active metoprolol succinate (TOPROL-XL) 25 mg 24 hr tabletIndication s:Coronary artery disease, unspecified vessel or lesion type, unspecified whether angina present, unspecified whether [place] or transplanted heart Take 0.5 tablets (12.5 mg total) by mouth 2 (two) times a day. 90 tablet 3 09/12/19 25 Active coconut oiL 1,000 mg capsule Take by mouth. 08/24 025 Discontin ued(Thera py completed ) [id number] 1000-130(40-80) mg capsule Take by mouth. 025 Discontin ued(Thera py completed ) metoprolol succinate (TOPROL-XL) 25 mg 24 hr tablet Take 0.5 tablets (12.5 mg total) by mouth 2 (two) times a day. 12/16/19 23 025 Discontin ued(Reord er) clopidogreL (PLAVIX) 75 mg tablet Take 1 tablet (75 mg total) by mouth 1 (one) time each day. 12/16/19 23 025 Discontin ued(Reord er) aspirin 81 mg EC tablet Take 1 tablet (81 mg total) by mouth 1 (one) time each day. 06/20/20 22 025 Discontin ued(Reord er) furosemide (LASIX) 40 mg tablet TAKE 1 TABLET BY MOUTH DAILY NEEDED FOR SWELLING 90 tablet 06/19/20 24 025 Discontin ued(Reord er) atorvastatin (LIPITOR) 80 mg tablet Take 1 tablet (80 mg total) by mouth 1 (one) time each day. 90 tablet 07/14/19 25 025 Discontin ued(Reord er) omeprazole (PriLOSEC) [address] capsule Take 1 capsule (20 mg total) by mouth 1 (one) time each day. 90 capsule 07/14/19 25 025 Discontin ued(Reord er) atorvastatin (LIPITOR) 80 mg tablet Take 1 tablet (80 mg total) by mouth 1 (one) time each day. 90 tablet 1 08/27/19 25 025 Discontin ued(Reord er) clopidogreL (PLAVIX) 75 mg tabletIndication s:Coronary artery disease, unspecified vessel or lesion type, unspecified whether angina present, unspecified whether [place] or transplanted heart Take 1 tablet (75 mg total) by mouth 1 (one) time each day. 90 tablet 3 09/12/19 25 025 Discontin ued(Sandra antoine) Active Problems Problem Noted Date Diagnosed Date Preop cardiovascular exam 09/11/2024 Assessment & Plan (09/11/2024 2:03 PM EDT): Per the Bruce cardiac risk index the [...] in order to prevent demand ischemic events. Urinary tract infection, site not specified 11/2022 Overview (09/03/2023): hosp 07/17 urosepsis Weakness 07/19/2022 CAD (coronary artery disease) 07/05/2022 Overview (09/11/2024): April 2022 - NSTEMI with subsequent urgent four-vessel coronary artery bypass grafting with MTZ to LAD, SVG to PDA, SVG to OM and SVG to diagonal April 2022 - echocardiogram showed preserved LV systolic function LVEF 60- 65%, no significant regional wall motion abnormalities, mild diastolic dysfunction, no evidence of LVOT obstruction, normal biatrial size, mild TR Assessment & Plan (09/11/2024 2:03 PM EDT): Underwent successful four vessel CABG in 2021. He has preserved LV systolic function on 2021 echocardiogram. No anginal symptoms. Will update echocardiogram due to lower blood pressure, but otherwise this condition is stable. Continue with aspirin, atorvastatin [...] bubble, strain, and 3D order panel; Future S/P CABG x 4 07/05/2022 Overview (09/03/2023): Done at [facility] on 05/23/22 with Raphael [...] 06/29/2018 Overview (09/03/2023): Right leg. 06/11. [place] [facility] 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 Abnormal bronchial thickening. 02/09 Stable, benign Dyspnea 12/29/2016 Overview (09/03/2023): 02/08- normal PFT 11/08 following episode pneumonia Echo neg. Mibi neg (7 mets), CT neg. H/O agent [place] exposure 11/28/2016 Ascending aorta dilation 11/21/2016 Overview [...] Erectile dysfunction 12/07/2010 GERD (gastroesophageal reflux disease) 8 Overview (09/03/2023): 12/03---trial off med, sx recurred---need chronic omeprazole Allergic rhinitis 11/28/2005 Anemia 11/28/2005 Overview (09/03/2023): 1997--ulcer due to asa--GI rec no asa--continued due to strong FH CAD IMO Update Fall 2015 Chest pain 11/28/2005 Overview (09/03/2023): cath neg 12/09- neg nuclear stress test Genital herpes 11/28/2005 Overview (09/03/2023): Famvir prn IMO update Pure hypercholesterolemia 11/28/2005 Assessment & Plan (09/11/2024 2:03 PM EDT): August 2024 - LDL 68. Continue with atorvastatin. Encounters Date Type Department Care Team Description 09/19/2024 Telephone [facility] Cardiology [facility] [address] [place] [address] Donavon Aguiar NP medical records 09/18/2024 Telephone [facility] [address] [place] [address] [place] [address] Donavon Aguiar NP echo results 09/11/2024 2:30 PM EDT Ancillary Procedure [facility] Cardiology [facility] [address] [place] [phone] Coronary artery disease, unspecified vessel or lesion type, unspecified whether angina present, unspecified whether [place] or transplanted heart 09/11/2024 12:40 PM EDT Consult [facility] Cardiology [facility] [address] [place] [address] Donavon Aguiar NP Preop cardiovascular exam (Primary Dx); Coronary artery disease, unspecified vessel or lesion type, unspecified whether angina present, unspecified whether [place] or transplanted heart; Pure hypercholesterolemia 08/26/2024 9:45 AM EST Office Visit [address] [phone] William Sandoval PA Stiffman syndrome (Primary Dx); Pain of right lower extremity; S/P CABG x 4; Gastroesophageal reflux disease, unspecified whether esophagitis present; Abnormal CBC; H/O agent [place] exposure; Pure hypercholesterolemia; Other polyneuropathy; Basal cell carcinoma, leg, right 08/26/[address] [phone] William Sandoval PA 08/21/2024 2:30 PM EST Office Visit Orth[facility] - [place] [address] [place] [address] [address] [place] [address] Sergio Carrillo, DPM Acquired hammer toe of right foot (Primary Dx); Dermatophytosis of nail; Pain in toe of right foot; Pain in toe of left foot; Stiff-man syndrome; Difficulty walking 08/21/2024 Telephone [facility] Cardiology [facility] [address] [place] [address] Dejuan Joyce MD Pre-operative Clearance 08/21/[address] [phone] Nydia Rai MD Faxed Order PT Re-Evaluation 07/24/2024, 07/29/2024 07/10/2024 Telephone [facility] [address] [place] [phone] Mendy Cifuentes [place] Medicare Annual Wellness Visit Subsequent (AWV DUE 2024) from Last 3 Months Surgical History Surgery Date Site/Laterality Comments COLONOSCOPY 12/03/2012 PROCEDURE: HISTORICAL COLONOSCOPY; COMMENT: adenomas; repeat in 3 yrs COLONOSCOPY 01/12/2017 PROCEDURE: HISTORICAL COLONOSCOPY; COMMENT: adenoma and tics; repeat in 5 yrs OTHER SURGICAL HISTORY PROCEDURE: HISTORICAL MELANOMA ESOPHAGOGASTRODUODENOSCOPY PROCEDURE: TX EGD TRANSORAL BIOPSY SINGLE/MULTIPLE; COMMENT: Performed in [...] med, sx recurred---need chronic omeprazole H/O agent [place] exposure 11/28/2016 DX:H/O agent [place] exposure History of basal cell carcinoma 02/06/2011 [...] DX:Pur e hypercholesterolemia Screening for osteoporosis 01/14/2008 DX:Ut reening for osteoporosis; COMMENT: Community screening 11/30 [...] Sign Reading Time Taken Comments Blood Pressure 110/70 09/11/2024 2:48 PM EDT Pulse 73 09/11/2024 12:25 PM EDT Temperature 36.9 ??C (98.4 ??F) 08/26/2024 9:56 AM ES T Respiratory Rate - - Oxygen Saturation 97% 09/11/2024 12:25 PM EDT Inhaled Oxygen Concentration - - Weight 80.3 kg (177 lb) 09/11/2024 2:48 PM EDT Height 180.3 cm (5' 11 ) 09/11/2024 2:48 PM EDT Body Mass Index 24.69 09/11/2024 2:48 PM EDT Plan of Treatment Upcoming Encounters Date Type Department Care Team (Late st Contact Info) Description 11/18/2024 9:00 AM EDT Office Visit Orthopedic Surgery - [place] [address] [phone] Sergio Carrillo, DPPaige [address] [address] 01/05/2025 9:00 AM EDT Office Visit Adult Medicine [facility] [address] [place] [address] Nydia Rai MD [address] [place] [address] Health Maintenance Due Date Last Done Comments Depression Screening 06/03/2022 Falls Risk Assessment 06/03/2022 Medicare Annual Wellness Visit 06/03/2022 Social Influencers of Health Screening 06/03/2022 Hypertension/CHF/CAD Annual BMP Blood Test 08/26/2025 08/26/2024, 12/25/2023, 09/29/2020, Additional history exists Colorectal Cancer Screening: Colonoscopy 01/12/2027 01/12/2017 Cholesterol Screening (Lipid Panel) 08/26/2029 08/26/2024, 12/25/2023, 12/19/2022 DTaP,Tdap,and Td Vaccines (4 - Td or Tdap) 03/11/2030 03/11/2020, 12/30/2009, 12/30/2009 Hepatitis C Screening Completed 06/16/2013 Zoster Vaccines Completed 04/05/2021, 01/24/2021 Pneumococcal Vaccine: 50+ Years Completed 01/30/2022, 11/19/2015, 06/14/2012, Additional history exists RSV Immunization Patients 60+ Years Old Completed 04/12/2023 COVID-19 Vaccine Completed 04/07/2024, , 12/19/2021, Additional history exists Influenza Vaccine Completed 04/07/2024, , 02/21/2022, Additional [...] Procedure Name Priority Date/Time Associated Diagnosis Comments TRANSTHORACIC ECHOCARDIOGRAM (TTE) COMPLETE Routine 09/11/2024 3:29 PM EDT Coronary artery disease, unspecified vessel or lesion type, unspecified whether angina present, unspecified whether [place] or transplanted heart ECG 12-LEAD Routine 09/11/2024 2:03 PM EDT Coronary artery disease, unspecified vessel or lesion type, unspecified whether angina present, unspecified whether [place] or transplanted heart CBC WITH AUTO DIFFERENTIAL Routine 08/26/2024 10:44 AM EST Gastroesophageal reflux disease, unspecified whether esophagitis present Abnormal CBC COMPREHENSIVE METABOLIC PANEL Routine 08/26/2024 10:44 AM EST Pure hypercholesterolemia LIPID PANEL WITH REFLEX TO DIRECT LDL Routine 08/26/2024 10:44 AM EST Pure hypercholesterolemia CBC AND DIFFERENTIAL Routine 08/26/2024 10:44 AM EST Gastroesophageal reflux disease, unspecified whether esophagitis present Abnormal CBC HM COLONOSCOPY Routine 01/12/2017 HM HEPATITIS C SCREENING Routine 06/16/2013 from Last 3 Months or Most Recently Relevant to Health Maintenance Results * (ABNORMAL) TRANSTHORACIC ECHOCARDIOGRAM (TTE) COMPLETE (09/11/2024 3:29 PM EDT) Left Atrium Major [place] 6.2 cm CV PACS LA Area Sys [...] Volume 76 mL CV PACS MV Deceleration [place] 2.4 m/s2 CV PACS E Wave Deceleration [...] S' 6 cm/s CV PACS RA Major [place] 5.8 cm CV PACS RA Major [place] Index 2.9(A) 2.1 - 2.7 cm/m2 CV [...] Overall the study quality was technically difficult. us Donavon Aguiar ADVANCED MANAGER CV ECHO PROCEDURES Final Re sult * ECG 12 lead (09/11/2024 2:03 PM EDT) Ventricular Rate ECG 66 BPM GEMUSE Atrial Rate 66 BPM GEMUSE P-R Interval 302 ms GEMUSE QRS Duration 82 ms GEMUSE Q-T Interval 370 ms GEMUSE QTc 387 ms GEMUSE P Wave [place] 55 degrees GEMUSE R [place] 14 degrees GEMUSE T [place] 56 degrees GEMUSE ECG Interpretation Sinus rhythm with 1st degree A-V block Cannot rule out Anteroseptal infarct , age undetermined Abnormal ECG When compared with ECG of 11-NOV-2000 12:42, TX interval has increased Minimal criteria for Anteroseptal infarct are now Present Confirmed by SMITH LAST ([id number]) on 09/12/2024 9:27:33 AM GEMUSE 09/11/2024 12:3 0 PM EDT 09/12/2024 9:27 AM EDT us Donavon Aguiar ADVANCED MANAGER ECG ORDERABLES Edited Resu lt - Final BECKY * Lipid panel with reflex to direct LDL (08/26/2024 10:44 AM EST) Cholesterol 137 0 - 200 mg/dL LAB CHEMISTRY METHOD 08/26/2024 1:15 PM [facility] Triglycerides 78 0 - 150 mg/dL LAB CHEMISTRY METHOD 08/26/2024 1:15 PM [facility] HDL 53 >=40 mg/dL LAB CHEMISTRY METHOD 08/26/2024 1:15 PM [facility] LDL Calculated 68 0 - 100 mg/dL LAB CHEMISTRY METHOD 08/26/2024 1:15 PM [facility] VLDL Cholesterol Cheko 15.6 mg/dL LAB CHEMISTRY METHOD 08/26/2024 1:15 PM [facility] Non HDL Chol. (LDL+VLDL) 84 <145 mg/dL LAB CHEMISTRY METHOD 08/26/2024 1:15 PM [facility] Chol/HDL Ratio 2.6 0.0 - 4.4 LAB CHEMISTRY METHOD 08/26/2024 1:15 PM [facility] Blood Venous blood specimen / Unknown Venipuncture / Unknown 08/26/2024 10:44 AM EST 08/26/2024 10:44 AM EST us William MATHIS LAB BLOOD ORDERABLES Final Res ult [facility] [address] [place] [address], * (ABNORMAL) CBC auto differential (08/26/2024 10:44 AM EST) WBC 4.0(L) 4.8 - 10.8 K/mcL LAB HEMETOLOGY METHOD 08/26/2024 12:45 PM [facility] RBC 4.00(L) 4.50 - 5.50 M/mcL LAB HEMETOLOGY METHOD 08/26/2024 12:45 PM [facility] Hemoglobin 13.4(L) 13.5 - 17.5 g/dL LAB HEMETOLOGY METHOD 08/26/2024 12:45 PM [facility] Hematocrit 40.5(L) 42.0 - 54.0 % LAB HEMETOLOGY METHOD 08/26/2024 12:45 PM EST [facility] MCV 102.3(H) 79.0 - 98.0 FL LAB HEMETOLOGY METHOD 08/26/2024 12:45 PM [facility] MCH 33.8(H) 27.0 - 32.0 pcg LAB HEMETOLOGY METHOD 08/26/2024 12:45 PM [facility] MCHC 33.1 32.0 - 37.0 g/dL LAB HEMETOLOGY METHOD 08/26/2024 12:45 PM EST [facility] RDW 13.5 11.0 - 15.0 % LAB HEMETOLOGY METHOD 08/26/2024 12:45 PM [facility] Platelets 122(L) 130 - 400 K/mcL LAB HEMETOLOGY METHOD 08/26/2024 12:45 PM [facility] MPV 11.7(H) 7.0 - 11.0 FL LAB HEMETOLOGY METHOD 08/26/2024 12:45 PM [facility] NRBC 0.0 <1.0 % LAB HEMETOLOGY METHOD 08/26/2024 12:45 PM [facility] NRBC Absolute 0.00 <0.10 K/mcL LAB HEMETOLOGY METHOD 08/26/2024 12:45 PM [facility] Neutrophils Relative 51.5 % LAB HEMETOLOGY METHOD 08/26/2024 12:45 PM [facility] Lymphocytes Relative 29.6 % LAB HEMETOLOGY METHOD 08/26/2024 12:45 PM [facility] Monocytes Relative 13.0 % LAB HEMETOLOGY METHOD 08/26/2024 12:45 PM [facility] Eosinophils Relative 4.8 % LAB HEMETOLOGY METHOD 08/26/2024 12:45 PM [facility] Basophils Relative 0.8 % LAB HEMETOLOGY METHOD 08/26/2024 12:45 PM [facility] Immature Granulocytes Relative 0.3 % LAB HEMETOLOGY METHOD 08/26/2024 12:45 PM [facility] Neutrophils Absolute 2.06 1.50 - 7.00 K/mcL LAB HEMETOLOGY METHOD 08/26/2024 12:45 PM [facility] Lymphocytes Absolute 1.18 1.00 - 5.00 K/mcL LAB HEMETOLOGY METHOD 08/26/2024 12:45 PM [facility] Monocytes Absolute 0.52 0.20 - 1.00 K/mcL LAB HEMETOLOGY METHOD 08/26/2024 12:45 PM [facility] Eosinophils Absolute 0.19 0.00 - 0.50 K/mcL LAB HEMETOLOGY METHOD 08/26/2024 12:45 PM [facility] Basophils Absolute 0.03 0.00 - 0.20 K/mcL LAB HEMETOLOGY METHOD 08/26/2024 12:45 PM [facility] Immature Granulocytes Absolute 0.01 0.00 - 0.03 K/mcL LAB HEMETOLOGY METHOD 08/26/2024 12:45 PM [facility] Blood Venous blood specimen / Unknown Venipuncture / Unknown 08/26/2024 10:44 AM EST 08/26/2024 10:44 AM EST us William MATHIS LAB BLOOD ORDERABLES Final Res ult [facility] [address] [place] [address], * (ABNORMAL) Comprehensive metabolic panel (08/26/2024 10:44 AM EST) Sodium 141 133 - 145 mmol/L LAB CHEMISTRY METHOD 08/26/2024 1:15 PM [facility] Potassium 4.3 3.5 - 5.5 mmol/L LAB CHEMISTRY METHOD 08/26/2024 1:15 PM [facility] Chloride 105 96 - 110 mmol/L LAB CHEMISTRY METHOD 08/26/2024 1:15 PM [facility] CO2 30 21 - 32 mmol/L LAB CHEMISTRY METHOD 08/26/2024 1:15 PM [facility] Anion Gap 6 3 - 11 LAB CHEMISTRY METHOD 08/26/2024 1:15 PM [facility] Glucose 91 70 - 100 mg/dL LAB CHEMISTRY METHOD 08/26/2024 1:15 PM [facility] BUN 24 5 - 25 mg/dL LAB CHEMISTRY METHOD 08/26/2024 1:15 PM [facility] Creatinine 1.12 0.70 - 1.30 mg/dL LAB CHEMISTRY METHOD 08/26/2024 1:15 PM [facility] eGFR 68 >=60 mL/min/1. 73m2 LAB CHEMISTRY METHOD 08/26/2024 1:15 PM [facility] Comment:Calculation based on the??Chronic Kidney Disease Epidemiology Collaboration (CKD-EPI) equation refit??without adjustment for race. BUN/Creatinine Ratio 21.4 LAB CHEMISTRY METHOD 08/26/2024 1:15 PM [facility] Calcium 9.3 8.5 - 10.5 mg/dL LAB CHEMISTRY METHOD 08/26/2024 1:15 PM [facility] AST (SGOT) 43(H) 10 - 42 unit/L LAB CHEMISTRY METHOD 08/26/2024 1:15 PM [facility] ALT (SGPT) 34 10 - 60 unit/L LAB CHEMISTRY METHOD 08/26/2024 1:15 PM [facility] Alkaline Phosphatase 76 42 - 121 unit/L LAB CHEMISTRY METHOD 08/26/2024 1:15 PM [facility] Total Protein 8.4(H) 6.0 - 8.0 g/dL LAB CHEMISTRY METHOD 08/26/2024 1:15 PM [facility] Albumin 3.5 3.2 - 5.0 g/dL LAB CHEMISTRY METHOD 08/26/2024 1:15 PM [facility] Total Bilirubin 0.4 0.0 - 1.4 mg/dL LAB CHEMISTRY METHOD 08/26/2024 1:15 PM [facility] Blood Venous blood specimen / Unknown Venipuncture / Unknown 08/26/2024 10:44 AM EST 08/26/2024 10:44 AM EST William MATHIS LAB BLOOD ORDERABLES Final Res ult [facility] [address] [place] [address], [place] [phone] * Colonoscopy (01/12/2017) Colonoscopy return in 5 years Anatomical Region Laterality Modality Other Historical Provider HEALTH MAINTENANCE Final Result * Hepatitis C Screening (06/16/2013) Hepatitis C Screening negative Historical Provider HEALTH MAINTENANCE Final Result from Last 3 Months or Most Recently Relevant to Health Maintenance Insurance MEDICARE [facility] Care Teams Health Claims Examiner Relationship Specialty Start Date End Date Nydia Rai MD [address] [place] [id number] PCP - General 12/18/1995
[2024-09-29 12:38] VITALS: BMI 23.8
--- NOTE | 2024-09-29 14:25 | HO.ANESPROP2 ---
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 SCIG weekly on Saturdays. Follows [facility]. Stable for 1 year f/u. Doing well with PT/rehab Follows Cardiology for CAD s/p NSTEMI/CABG x 4 2021, SVT, AAA. Optimized for surgery per 08/2024 eval. Case reviewed with Dr Valles [facility] Active Problems Active Problems: All Active Problems (Updated 09/29/24 @ 12:36 by Glory Palmer RN) Skin cancer (Acute) Thoracic aortic aneurysm without rupture (Acute) Past Medical History Medical History Stiffman syndrome History of anesthesia complications Peptic ulcer TBI (traumatic brain injury) Tremor Elevated cholesterol GERD (gastroesophageal reflux disease) Peripheral neuropathy SVT (supraventricular tachycardia) Basal cell carcinoma Myocardial infarction Ascending aorta dilation Prostate cancer H/O agent [place] exposure Stiffman syndrome Long-term current use of intravenous immunoglobulin (IVIG) Family History Family History Brother No problems noted. Surgical History Surgical History Hx of hernia repair History of esophagogastroduodenoscopy (EGD) H/O colonoscopy Hx of rotator cuff surgery History of surgery on lower extremity History of prostate surgery Hx of CABG Hx of cardiac catheterization Social History Social History Are you a primary ocular care technician to a significant other at home: No Do you presently have visiting nurse or other home services: No Alcohol intake: current Alcohol intake frequency: does not drink Alcohol type: wine Comment: advised of trip hazard Patient Tobacco Use Status: Former Tobacco user Tobacco use type: Cigarette Years Smoked: 3 Use of substances other than those prescribed or required for medical reasons: No Have you been hit, kicked, punched, or otherwise hurt by someone within the past year? If so, by whom?: No Spiritual Healthcare Practices: none Scientologist Healthcare Practices: none Cultural Healthcare Practices: none Are you DNR?: No Advance Directives Information Provided: Yes (as above noted) Advance Directives on File: No Poor oral hygiene: No Meds Allergies Allergy/AdvReac Type Severity Reaction Status Date / Time No Known Allergies Allergy Verified 08/18/24 10:56 [No Known Allergies*] Home Medications ?Medication ?Instructions ?Recorded ?Confirmed ?Last Taken ?Type baclofen 10 mg tablet 10 mg PO TID 05/27/20 09/29/24 10/09/24 History diazepam 2 mg tablet 2 mg PO BID 05/27/20 09/29/24 10/10/24 History omeprazole 20 mg capsule,delayed 20 mg PO QAM 05/27/20 09/29/24 10/10/24 History release simvastatin 20 mg tablet 20 mg PO QAM 05/27/20 09/29/24 10/10/24 History aspirin 81 mg tablet,delayed 81 mg PO QAM 08/18/24 09/29/24 10/09/24 History release (Adult Aspirin Regimen) immunoglobulin 35 mg IV QWEEK 09/22/24 09/29/24 10/04/24 History Exam Height,Weight and Vital Signs: Height 5 ft 11 in Weight 77.564 kg Pertinent Lab Results Pertinent Lab Results: CBC and CMP 08/2024 from outside facility [place] Narrative Narrative: EKG 08/2024 SR with 1st deg AV block Cannot r/o anteroseptal infarct, age undetermined ECHO 08/2024 LV cavity is small. Moderate hypertrophy. Severe basal septal hypertrophy. Systolic function is nml with EF 55-60%. Observed mid cavity and LVOT gradients are not significant No hemodynamically significant valve dysfunction Asc aorta dilitation 4.5cm Assessment and Plan Assessment Anesthesia Assessment: Chart Reviewed Documented by User: Minerva Burgos MD 10/10/24 07:44 [facility] Past Medical History Medical History Stiffman syndrome History of anesthesia complications Peptic ulcer TBI (traumatic brain injury) Tremor Elevated cholesterol GERD (gastroesophageal reflux disease) Peripheral neuropathy SVT (supraventricular tachycardia) Basal cell carcinoma Myocardial infarction Ascending aorta dilation Prostate cancer H/O agent [place] exposure Stiffman syndrome Long-term current use of intravenous immunoglobulin (IVIG) Family History Family History Brother No problems noted. Surgical History Surgical History Hx of hernia repair History of esophagogastroduodenoscopy (EGD) H/O colonoscopy Hx of rotator cuff surgery History of surgery on lower extremity History of prostate surgery Hx of CABG Hx of cardiac catheterization History of Problems with Anesthesia: No Social History Social History Are you a primary ocular care technician to a significant other at home: No Do you presently have visiting nurse or other home services: No Alcohol intake: current Alcohol intake frequency: does not drink Alcohol type: wine Comment: advised of trip hazard Patient Tobacco Use Status: Former Tobacco user Tobacco use type: Cigarette Years Smoked: 3 Use of substances other than those prescribed or required for medical reasons: No Have you been hit, kicked, punched, or otherwise hurt by someone within the past year? If so, by whom?: No Spiritual Healthcare Practices: none Scientologist Healthcare Practices: none Cultural Healthcare Practices: none Are you DNR?: No Advance Directives Information Provided: Yes (as above noted) Advance Directives on File: No Poor oral hygiene: No Meds Allergies Allergy/AdvReac Type Severity Reaction Status Date / Time No Known Allergies Allergy Verified 08/18/24 10:56 [No Known Allergies*] Home Medications ?Medication ?Instructions ?Recorded ?Confirmed ?Last Taken ?Type baclofen 10 mg tablet 10 mg PO TID 05/27/20 09/29/24 10/09/24 History diazepam 2 mg tablet 2 mg PO BID 05/27/20 09/29/24 10/10/24 History omeprazole 20 mg capsule,delayed 20 mg PO QAM 05/27/20 09/29/24 10/10/24 History release simvastatin 20 mg tablet 20 mg PO QAM 05/27/20 09/29/24 10/10/24 History aspirin 81 mg tablet,delayed 81 mg PO QAM 08/18/24 09/29/24 10/09/24 History release (Adult Aspirin Regimen) immunoglobulin 35 mg IV QWEEK 09/22/24 09/29/24 10/04/24 History Exam Airway Mallampati Class: III TM Dist: >3cm Neck ROM: Limited Loose/Missing/Broken Teeth: No Heart: RRR Lungs: CTA Assessment and Plan Assessment Anesthesia Assessment: Anesthesia Plan Discussed Final Anesthetic Review History of Problems with Anesthesia: No NPO: Yes ASA Class: III Final Preanesthetic Review: Meds/Allgs Chart Reviewed, Consent Obtained/Reviewed and Anes Risks/Benef Reviewed Patient Risk: Intermediate Procedure Risk: Low Anesthetic Plan Anesthetic Plan: MAC: Disposition: Standard PACU
--- NOTE | 2024-10-09 09:54 | MHC.SHP ---
Pre-Procedural Eval Section A - 24 Hr Update-Section A only Date of Service: 10/10/24 The patient is an INPATIENT: No Changes since office visit: No Cold of Flu in the past 2 weeks, No New Medical Problems, No Changes in Medication and No Patient answered all questions Section B - Complete if H&P > 30 days Chief Complaint: Unspecified malignant neoplasm of skin, unspecifie Allergies: Allergies Allergy/AdvReac Type Severity Reaction Status Date / Time No Known Allergies Allergy Verified 08/18/24 10:56 [No Known Allergies*] Review of Systems Sugical H&P ROS: Negative: Constitution, Cardiovascular, Respiratory, Neurological, Psychiatric, Hem-Onc, Allergic/Immunologic, Gastrointestinal, Genitourinary, Musculoskeletal, Integumentary, Endocrine and Eyes/Ears/Nose/Throat Exam Surgical H&P Exam: Normal: HEENT, Normal: Heart, Normal: Lungs, Normal: Extremities, Normal: Abdomen, Normal: Skin and Normal: Neurological Plan I have reviewed the history and physical and performed a pertinent physical examination on my patient. No changes have occurred unless specified. Time Spent With Patient Time: Total time managing care of this patient today ____ minutes.
[2024-10-10 06:10] VITALS: BP 123/75; PULSE 89; RESP 20; TEMP 36.4; O2SAT 97
[2024-10-10] MEDS: Lactated Ringers 1,000 ML 100 ML IVCONT (06:58)
[2024-10-10] MEDS: ceFAZolin Sodium/Dextrose,Iso 2 GM/50 ML PIGGYBACK IV (07:40)
--- NOTE | 2024-10-10 08:03 | W.PM.OPN ---
Operative Note Operative Note Date of Service: 10/10/24 Narrative: Preoperative diagnosis: [] Fungating symptomatic right lower leg tumor Postop diagnosis: [] The same Procedure [] wide local excision right lower leg tumor Surgeon: [] [employer]: [] Jessica Type of Anesthesia: [] Mac Indication for surgery: [] Final specimen size roughly 8 x 4 cm involving the anterior medial right mid lower leg. Grossly clear margins were obtained. Specimen was tagged for permanent pathology. Findings: [] Patient brought to the operating room, placed on operative table supine position, after an adequate level of MAC anesthesia was induced, the right lower extremity was prepped and draped in usual sterile fashion using a longitudinal by elliptical incision encompassing the lesion in question to grossly clear margins, this carried down through skin, subcutaneous tissue, undermined and specimen sent to pathology after being tagged. Circumferentially skin flaps were developed and the wound was irrigated, secured hemostasis, and closed using interrupted inverted dermal 2-0 Vicryl sutures followed by Steri-Strips sterile dressings and a Norma wrap. Wound was infiltrated at the beginning at the end with 0.5% Marcaine/1% lidocaine. Sponge, needle, and instrument counts reported correct. Patient tolerated the procedure well and emerged from anesthesia stable condition. EBL minimal
[2024-10-10 08:05] VITALS: BP 100/54; PULSE 50; RESP 18; TEMP 36.3; O2SAT 98
[2024-10-10 08:10] VITALS: BP 102/58; PULSE 51; RESP 17; O2SAT 98
[2024-10-10 08:20] VITALS: BP 108/66; PULSE 56; RESP 17; O2SAT 95
[2024-10-10 08:37] VITALS: BP 105/71; PULSE 50; RESP 18; TEMP 36.2; O2SAT 95
== END 2024-10-10 09:03 | disposition home or self-care (01) ==
PROVIDERS: PCP Pediatrics; Visit Provider Surgery
PROC: (CPT 11606; principal; 2024-10-10 07:30)
DX: C44.712 Basal cell carcinoma of skin of right lower limb, including hip (principal); Z85.46 Personal history of malignant neoplasm of prostate; Z90.79 Acquired absence of other genital organ(s); I25.10 Atherosclerotic heart disease of native coronary artery without angina pectoris; I25.2 Old myocardial infarction; Z95.1 Presence of aortocoronary bypass graft; E78.00 Pure hypercholesterolemia, unspecified; I71.21 Aneurysm of the ascending aorta, without rupture; G25.82 Stiff-man syndrome; G62.9 Polyneuropathy, unspecified; Z87.820 Personal history of traumatic brain injury; Z79.620 Long term (current) use of immunosuppressive biologic; Z79.82 Long term (current) use of aspirin; Z79.899 Other long term (current) drug therapy; Z77.098 Contact with and (suspected) exposure to other hazardous, chiefly nonmedicinal, chemicals; Z87.891 Personal history of nicotine dependence
CPT/HCPCS: 11606; 88305; 88307; J0690; J2003; J2704; J2795; J3010

== ENCOUNTER → 2024-10-10 05:52 | Outpatient (BNV) | payer MEDICARE, SELFPAY | PROVIDERS: PCP Pediatrics; Visit Provider Surgery | DX: C44.712 Basal cell carcinoma of skin of right lower limb, including hip (principal) | CPT/HCPCS: 11606 ==

== ENCOUNTER 2024-10-20 11:19 | Outpatient (AMB) | payer MEDICARE, SELFPAY ==
--- NOTE | 2024-10-20 11:20 | MHC.OFFVIS ---
Vital Signs 10/20/24 11:27 Weight 180 lb BP 118/69 Blood Pressure Location Rt brachial Position Sitting Pulse 79 Intake Visit Reasons: S/P lap kemar Intake Note: Patient here s/p wide local excision right lower leg tumor. Reports incision healing well. Patient c/o: no longer taking rx pain meds. Surgery: 10-10-2024 Administrative Hearing Officer Required: No Accompanied by: spouse Gerri Allergies No Known Allergies [No Known Allergies*] Allergy (Verified 10/20/24 11:26) HPI Comments Details: Mr. Hoffman presents for follow up after wide local excision right lower leg tumor on 10/10/[address] Hinojosa. He has not taken any pain medication in 2 days. He does report some leg stiffness due to inability to participate in his PT, water exercises. Otherwise he is ambulating without difficulty. He is eating ok, moving his bowels. He reports no other concerns. Path revealed basal cell carcinoma, negative margins. [facility] Medical History Stiffman syndrome History of anesthesia complications Peptic ulcer TBI (traumatic brain injury) Tremor Elevated cholesterol GERD (gastroesophageal reflux disease) Peripheral neuropathy SVT (supraventricular tachycardia) Basal cell carcinoma Myocardial infarction Ascending aorta dilation Prostate cancer H/O agent Lane exposure Stiffman syndrome Long-term current use of intravenous immunoglobulin (IVIG) Surgical History (Updated 10/20/24 @ 11:56 by Caroline Lopez PA-C) Hx of surgical procedure (10/10/24) Hx of hernia repair History of esophagogastroduodenoscopy (EGD) H/O colonoscopy Hx of rotator cuff surgery History of surgery on lower extremity History of prostate surgery Hx of CABG Hx of cardiac catheterization Family History Brother No problems noted. Social History Are you a primary health care assistant to a significant other at home: No Do you presently have visiting nurse or other home services: No Alcohol intake: current Alcohol intake frequency: does not drink Alcohol type: wine Comment: advised of trip hazard Patient Tobacco Use Status: Former Tobacco user Tobacco use type: Cigarette Years Smoked: 3 Review of Systems Const Denies chills and Denies fever(s) Card Denies dyspnea Resp Denies dyspnea GI Denies constipation and Denies vomiting Skin/Breast Denies rash Physical Exam Vital Signs: Last Vital Signs Pulse 79 10/20/24 11:27 BP 118/69 10/20/24 11:27 Const General: comfortable, no acute distress and alert Resp Effort & Inspection: normal respiratory effort and able to speak in complete sentences Extrem Other: right lower leg, anterior surface, steri strips removed, incision clean appearing without erythema, some superficial skin desquamation and small area of separation with small amount of underlying sanguineous drainage Results Reviewed Results Reviewed: Skin, right leg, excision: Basal cell carcinoma, superficial, nodular and infiltrative types; completely excised Assessment & Plan Assessment & Plan (1) H/O basal cell carcinoma excision: Code(s): Z98.890 - Other specified postprocedural states; Z85.828 - Personal history of other malignant neoplasm of skin Category: Surgical Plan Pathology reviewed- no further intervention needed but will need 6 month follow up. Overall incision clean appearing without evidence of infection. Steri strips reapplied to incision as there was a small area of separation. Instructed to keep area dry and leg elevated at rest. Follow up in 1 week for wound check. Instructed on holding off on submersion of wound/water activities until incision is completely healed. Coding Level of Care Code Global (05592) Diagnoses H/O basal cell carcinoma excision Z98.890; Z85.828
[2024-10-20 11:27] VITALS: BP 118/69; PULSE 79
--- OUTSIDE RECORDS SUMMARY | 2024-10-20 13:41 | XMS_ITS | Clinical Summary ---
Author Organization [facility] [address] [facility] Address [address] [place] [address] Phone Care Team Providers Care Flame Channeler Name Role Phone yNdia Rai MD Primary Care Provider [phone] Allergies Active Allergy Reactions Criticality Noted Date Comments Pollen Extracts Unknown 03/15/2010 Medications cyanocobalamin (VIT B-12) 1,000 mcg tablet extended release ER tablet Take 0.1 mg by mouth. Active multivitamin (MULTI-DAY ORAL) Take 1 tablet by mouth. Active thiamine 100 mg tablet Take 1 tablet (100 mg total) by mouth 1 (one) time each day. Active Abrysvo 120 mcg/0.5 mL recon soln 3 Active coenzyme Q-10 100 mg capsule Take [...] 2 tablets (650 mg total) by mouth. 0 Active cholecalciferol (VITAMIN D-3) 10 mcg (400 unit) capsule Take 1 capsule (400 Units total) by mouth. Active omeprazole (PriLOSEC) [address] capsule Take 1 capsule (20 mg total) by mouth 1 (one) time each day. 90 capsule 5 Active aspirin 81 mg EC tablet Take 1 tablet (81 mg total) by mouth 1 (one) time each day. Take 1 tablet (81 mg total) by mouth 1 (one) time each day. 90 tablet 1 5 Active furosemide (LASIX) 40 mg tablet Take 1 tablet (40 mg total) by mouth 1 (one) time each day if needed (prn for swelling). TAKE 1 TABLET BY MOUTH DAILY NEEDED FOR SWELLING 90 tablet 1 5 Active Additional Information Patient taking differently:40 mg oralDaily, TAKE 1 TABLET BY MOUTH DAILY NEEDED FOR SWELLING, Reported on 09/11/2024 atorvastatin (LIPITOR) 80 mg tabletIndication s:Coronary artery disease, unspecified vessel or lesion type, unspecified whether angina present, unspecified whether upper sioux or transplanted heart Take 1 tablet (80 mg total) by mouth 1 (one) time each day. 90 tablet 3 5 Active metoprolol succinate (TOPROL-XL) 25 mg 24 hr tabletIndication s:Coronary artery disease, unspecified vessel or lesion type, unspecified whether angina present, unspecified whether upper [place] or transplanted heart Take 0.5 tablets (12.5 mg total) by mouth 2 (two) times a day. 90 tablet 3 5 Active Active Problems Problem Noted Date Diagnosed [...] x 4 07/05/2022 Overview (09/03/2023): Done at [facility] on 05/23/22 with Raphael Barton - indications: CAD, NSTEMI SVT (supraventricular tachycardia) ([facility]/HCC V24) 07/05/2022 NSTEMI (non-ST elevated myoc ardial infarction) (CMS/HCC V24, CMS/HCC V28) 05/24/2022 Overview (09/03/2023): Hosp 05/16. 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 06/11. Neurology [facility]. 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 Abnormal bronchial thickening. 02/09 Stable, benign Dyspnea 12/29/2016 Overview (09/03/2023): 02/08- normal PFT 11/08 following episode pneumonia Echo neg. Mibi neg (7 mets), CT neg. H/O agent [place] exposure 11/28/2016 Ascending aorta dilation ([facility] V24) 7 Overview (09/03/2023): Seen on echocardiogram. 4.2 cm [...] Encounters Date Type Department Care Team Description 09/26/2024 Telephone [facility] Cardiology [facility] [address] [place] [address] [address] [place] [address] Nydia Rai MD Medical Records 09/26/2024 Telephone [facility] [address] [place] [address] Nydia Rai MD Medical Records 09/19/2024 Telephone [facility] Dr [facility] [address] [place] [address] Donavon Aguiar NP medical records 09/18/2024 Telephone [facility] Cardiology [facility] [address] [place] [address] Donavon Aguiar NP echo results 09/11/2024 2:30 PM EDT Ancillary Procedure [facility] Cardiology [facility] [address] [place] [address] Coronary artery disease, unspecified vessel or lesion type, unspecified whether angina present, unspecified whether upper sioux or transplanted heart 09/11/2024 12:40 PM EDT Consult [facility] [address] [facility] [address] [place] [address] Donavon Aguiar NP Preop cardiovascular exam (Primary Dx); Coronary artery disease, unspecified vessel or lesion type, unspecified whether angina present, unspecified whether upper [place] or transplanted heart; Pure hypercholesterolemia 08/26/2024 9:45 AM EST Office Visit Adult Medicine [facility] [address] [place] [phone] William Sandoval PA Stiffman syndrome (Primary Dx); Pain of right lower extremity; S/P CABG x 4; Gastroesophageal reflux disease, unspecified whether esophagitis present; Abnormal CBC; H/O agent [place] exposure; Pure hypercholesterolemia; Other polyneuropathy; Basal cell carcinoma, leg, right 08/26/2024 Telephone [facility] [address] [place] [address] William Sandoval PA 08/21/2024 2:30 PM EST Office Visit [facility] - [place] [address] [place] [phone] Sergio Carrillo DPM Acquired hammer toe of right foot (Primary Dx); Dermatophytosis of nail; Pain in toe of right foot; Pain in toe of left foot; Stiff-man syndrome; Difficulty walking 08/21/2024 Telephone [facility] [address] [place] [address] Dejuan Joyce MD Pre-operative Clearance 08/21/2024 Telephone [place] [address] [place] [address] Nydia Rai MD Faxed Order PT Re-Evaluation 07/24/2024, 07/29/2024 from Last 3 Months Surgical History Surgery Date Site/Laterality Comments COLONOSCOPY 12/03/2012 PROCEDURE: HISTORICAL COLONOSCOPY; COMMENT: adenomas; repeat in 3 yrs COLONOSCOPY 01/12/2017 PROCEDURE: HISTORICAL COLONOSCOPY; COMMENT: adenoma and tics; repeat in 5 yrs OTHER SURGICAL HISTORY PROCEDURE: HISTORICAL MELANOMA ESOPHAGOGASTRODUODENOSCOPY PROCEDURE: IN EGD TRANSORAL BIOPSY SINGLE/MULTIPLE; COMMENT: Performed in [...] IMO Update Fall 2015 Ascending aorta dilation (CM S/HCC V24) 11/21/2016 DX:Ascending aorta dilation (HCC); COMMENT: Seen [...] med, sx recurred---need chronic omeprazole H/O agent [place] exposure 11/28/2016 DX:H/O agent [place] exposure History of basal cell carcinoma 02/06/2011 DX:History of basal cell carcinoma; COMMENT: BCC 12/06 back (nodular & superficial) 02/02 chest (nodular) Kidney cyst, acquired 07/04/2018 DX:Kidney cyst, acquired; COMMENT: 05/12- [facility], left incidental finding on lumbar MRI 07/13- appear benign on renal ultrasound, clear, exophytic cysts Malignant neoplasm of prosta te (CMS/HCC V24, CMS/HCC V28) 06/12/2006 DX:Malignant neoplasm of pr ostate (HCC); COMMENT: 05/30--5.2--prostate cancer--TURP 10/29 Peripheral neuropathy [...] exposure DX:Agent o range exposure Prostate cancer (CMS/HCC V24 , CMS/HCC V28) DX:Prostate cancer (HCC) History of prostate cancer DX:Hi [...] AM EDT Office Visit [facility] - [place] [address] [facility] [address] [place] [address] Sergio Carrillo, DPM [address] [address] 01/05/2025 9:00 AM EDT Office Visit Adult Medicine [facility] [address] [place] [phone] Nydia Rai MD [address] [place] [address] 04/03/2025 2:40 PM EDT Office Visit [facility] [place] [address] [place] [phone] Donavon Aguiar NP [address] [place] [address] [place] [address] Health Maintenance Due Date Last Done Comments Depression Screening 06/03/2022 Falls Risk Assessment 06/03/2022 Medicare Annual Wellness Visit 06/03/2022 Social Influencers of Health Screening 06/03/2022 COVID-19 Vaccine (7 - Moderna risk ) 10/06/2024 04/07/2024, 02/22/2023, 12/19/2021, Additional history exists Hypertension/CHF/CAD Annual BMP Blood Test 08/26/2025 08/26/2024, 12/25/2023, 09/29/2020, Additional history exists Colorectal Cancer Screening: Colonoscopy 01/12/2027 01/12/2017 Cholesterol Screening (Lipid Panel) 08/26/2029 08/26/2024, 12/25/2023, 12/19/2022 DTaP,Tdap,and Td Vaccines (4 - Td or Tdap) 03/11/2030 03/11/2020, 12/30/2009, 12/30/2009 Hepatitis C Screening Completed 06/16/2013 Zoster Vaccines Completed 04/05/2021, 01/24/2021 Pneumococcal Vaccine: 50+ Years Completed 01/30/2022, 11/19/2015, 06/14/2012, Additional history exists RSV Immunization Adult Patients Completed 04/12/2023 Influenza Vaccine Completed 04/07/2024, , 02/21/2022, Additional [...] age to complete this topic Meningococcal B Vaccine Aged Out No l onger eligible based on patient's age to complete [...] type, unspecified whether angina present, unspecified whether upper sioux or transplanted heart ECG 12-LEAD Routine 09/11/2024 2:03 PM EDT Coronary artery disease, unspecified vessel or lesion type, unspecified whether angina present, unspecified whether upper [place] or transplanted heart CBC WITH AUTO DIFFERENTIAL Routine 08/26/2024 10:44 AM EST Gastroesophageal reflux disease, unspecified whether esophagitis present Abnormal CBC COMPREHENSIVE METABOLIC PANEL Routine 08/26/2024 10:44 AM EST Pure hypercholesterolemia LIPID PANEL WITH REFLEX TO DIRECT LDL Routine 08/26/2024 10:44 AM EST Pure hypercholesterolemia CBC AND DIFFERENTIAL Routine 08/26/2024 10:44 AM EST Gastroesophageal reflux disease, unspecified whether esophagitis present Abnormal CBC COLONOSCOPY Routine 01/12/2017 HEPATITIS C SCREENING Routine 06/16/2013 from Last 3 Months or Most Recently Relevant to Health Maintenance Results * (ABNORMAL) TRANSTHORACIC ECHOCARDIOGRAM (TTE) COMPLETE (09/11/2024 3:29 PM EDT) Left Atrium Major Newell 6.2 cm CV PACS LA Area Sys [...] Volume 76 mL CV PACS MV Deceleration Crook 2.4 m/s2 CV PACS E Wave Deceleration [...] S' 6 cm/s CV PACS RA Major Newell 5.8 cm CV PACS RA Major Newell Index 2.9(A) 2.1 - 2.7 cm/m2 CV [...] GEMUSE QTc 387 ms GEMUSE P Wave Newell 55 degrees GEMUSE R Newell 14 degrees GEMUSE T Newell 56 degrees GEMUSE ECG Interpretation Sinus rhythm with 1st degree A-V block Cannot rule out Anteroseptal infarct , age undetermined Abnormal ECG When compared with ECG of 11-NOV-2000 12:42, IN interval has increased Minimal criteria for Anteroseptal infarct are now Present Confirmed by SMITH LAST ([id number]) on 09/12/2024 9:27:33 AM GEMUSE 09/11/2024 12:3 0 PM EDT 09/12/2024 9:27 AM EDT Donavon Aguiar NP ECG ORDERABLES Edited Resu lt - Final GEMUSE * Lipid panel with reflex to direct LDL (08/26/2024 10:44 AM EST) Cholesterol 137 0 - 200 mg/dL LAB CHEMISTRY METHOD 08/26/2024 1:15 PM EST [facility] Triglycerides 78 0 - 150 mg/dL LAB CHEMISTRY METHOD 08/26/2024 1:15 PM EST [facility] HDL 53 >=40 mg/dL LAB CHEMISTRY METHOD 08/26/2024 1:15 PM EST [facility] LDL Calculated 68 0 - 100 mg/dL LAB CHEMISTRY METHOD 08/26/2024 1:15 PM EST [facility] VLDL Cholesterol Cheko 15.6 mg/dL LAB CHEMISTRY METHOD 08/26/2024 1:15 PM [facility] Non HDL Chol. (LDL+VLDL) 84 <145 mg/dL LAB CHEMISTRY METHOD 08/26/2024 1:15 PM [facility] Chol/HDL Ratio 2.6 0.0 - 4.4 LAB CHEMISTRY METHOD 08/26/2024 1:15 PM [facility] Blood Venous blood specimen / Unknown Venipuncture / Unknown 08/26/2024 10:44 AM EST 08/26/2024 10:44 AM EST us William MATHIS LAB BLOOD ORDERABLES Final Res ult [facility] [address] [place] [address], * (ABNORMAL) CBC auto differential (08/26/2024 10:44 AM EST) WBC 4.0(L) 4.8 - 10.8 K/[facility] LAB HEMETOLOGY METHOD 08/26/2024 12:45 PM [facility] RBC 4.00(L) 4.50 - 5.50 M/mcL LAB HEMETOLOGY METHOD 08/26/2024 12:45 PM [facility] Hemoglobin 13.4(L) 13.5 - 17.5 g/dL LAB HEMETOLOGY METHOD 08/26/2024 12:45 PM [facility] Hematocrit 40.5(L) 42.0 - 54.0 % LAB HEMETOLOGY METHOD 08/26/2024 12:45 PM [facility] MCV 102.3(H) 79.0 - 98.0 FL LAB HEMETOLOGY METHOD 08/26/2024 12:45 PM [facility] MCH 33.8(H) 27.0 - 32.0 pcg LAB HEMETOLOGY METHOD 08/26/2024 12:45 PM [facility] MCHC 33.1 32.0 - 37.0 g/dL LAB HEMETOLOGY METHOD 08/26/2024 12:45 PM [facility] RDW 13.5 11.0 - 15.0 % LAB HEMETOLOGY METHOD 08/26/2024 12:45 PM [facility] Platelets 122(L) 130 - 400 K/mcL LAB HEMETOLOGY METHOD 08/26/2024 12:45 PM [facility] MPV 11.7(H) 7.0 - 11.0 FL LAB HEMETOLOGY METHOD 08/26/2024 12:45 PM [facility] NRBC 0.0 <1.0 % LAB HEMETOLOGY METHOD 08/26/2024 12:45 PM [facility] NRBC Absolute 0.00 <0.10 K/mcL LAB HEMETOLOGY METHOD 08/26/2024 12:45 PM [facility] Neutrophils Relative 51.5 % LAB HEMETOLOGY METHOD 08/26/2024 12:45 PM [facility] Lymphocytes Relative 29.6 % LAB HEMETOLOGY METHOD 08/26/2024 12:45 PM [facility] Monocytes Relative 13.0 % LAB HEMETOLOGY METHOD 08/26/2024 12:45 PM [facility] Eosinophils Relative 4.8 % LAB HEMETOLOGY METHOD 08/26/2024 12:45 PM [facility] Basophils Relative 0.8 % LAB HEMETOLOGY METHOD 08/26/2024 12:45 PM [facility] Immature Granulocytes Relative 0.3 % LAB HEMETOLOGY METHOD 08/26/2024 12:45 PM [facility] Neutrophils Absolute 2.06 1.50 - 7.00 K/mcL LAB HEMETOLOGY METHOD 08/26/2024 12:45 PM EST [facility] Lymphocytes Absolute 1.18 1.00 - 5.00 K/mcL LAB HEMETOLOGY METHOD 08/26/2024 12:45 PM [facility] Monocytes Absolute 0.52 0.20 - 1.00 K/mcL LAB HEMETOLOGY METHOD 08/26/2024 12:45 PM EST [facility] Eosinophils Absolute 0.19 0.00 - 0.50 K/[facility] LAB HEMETOLOGY METHOD 08/26/2024 12:45 PM [facility] Basophils Absolute 0.03 0.00 - 0.20 K/mcL LAB HEMETOLOGY METHOD 08/26/2024 12:45 PM [facility] Immature Granulocytes Absolute 0.01 0.00 - 0.03 K/[facility] LAB HEMETOLOGY METHOD 08/26/2024 12:45 PM [facility] Blood Venous blood specimen / Unknown Venipuncture / Unknown 08/26/2024 10:44 AM EST 08/26/2024 10:44 AM EST us William MATHIS LAB BLOOD ORDERABLES Final Res ult [facility] [address] [place] [address], * (ABNORMAL) Comprehensive metabolic panel (08/26/2024 10:44 AM EST) Sodium 141 133 - 145 mmol/L LAB CHEMISTRY METHOD 08/26/2024 1:15 PM [facility] Potassium 4.3 3.5 - 5.5 mmol/L LAB CHEMISTRY METHOD 08/26/2024 1:15 PM [facility] Chloride 105 96 - 110 mmol/L LAB CHEMISTRY METHOD 08/26/2024 1:15 PM EST [facility] CO2 30 21 - 32 mmol/L LAB CHEMISTRY METHOD 08/26/2024 1:15 PM [facility] Anion Gap 6 3 - 11 LAB CHEMISTRY METHOD 08/26/2024 1:15 PM [facility] Glucose 91 70 - 100 mg/dL LAB CHEMISTRY METHOD 08/26/2024 1:15 PM [facility] BUN 24 5 - 25 mg/dL LAB CHEMISTRY METHOD 08/26/2024 1:15 PM [facility] Creatinine 1.12 0.70 - 1.30 mg/dL LAB CHEMISTRY METHOD 08/26/2024 1:15 PM [facility] eGFR 68 >=60 mL/min/1. 73m2 LAB CHEMISTRY METHOD 08/26/2024 1:15 PM [facility] Comment:Calculation based on the??Chronic Kidney Disease Epidemiology Collaboration (CKD-EPI) equation refit??without adjustment for race. BUN/Creatinine Ratio 21.4 LAB CHEMISTRY METHOD 08/26/2024 1:15 PM [facility] Calcium 9.3 8.5 - 10.5 mg/dL LAB CHEMISTRY METHOD 08/26/2024 1:15 PM [facility] AST (SGOT) 43(H) 10 - 42 unit/L LAB CHEMISTRY METHOD 08/26/2024 1:15 PM [facility] ALT (SGPT) 34 10 - 60 unit/L LAB CHEMISTRY METHOD 08/26/2024 1:15 PM [facility] Alkaline Phosphatase 76 42 - 121 unit/L LAB CHEMISTRY METHOD 08/26/2024 1:15 PM [facility] Total Protein 8.4(H) 6.0 - 8.0 g/dL LAB CHEMISTRY METHOD 08/26/2024 1:15 PM [facility] Albumin 3.5 3.2 - 5.0 g/dL LAB CHEMISTRY METHOD 08/26/2024 1:15 PM [facility] Total Bilirubin 0.4 0.0 - 1.4 mg/dL LAB CHEMISTRY METHOD 08/26/2024 1:15 PM EST [facility] Blood Venous blood specimen / Unknown Venipuncture / Unknown 08/26/2024 10:44 AM EST 08/26/2024 10:44 AM EST William MATHIS LAB BLOOD ORDERABLES Final Res ult [facility] [address] [place] [address], [place] [phone] * Colonoscopy (01/12/2017) [facility] Colonoscopy return in 5 years Anatomical Region Laterality Modality Other Historical Provider HEALTH MAINTENANCE Final Result * Hepatitis C Screening (06/16/2013) [facility] Hepatitis C Screening negative Historical Provider HEALTH MAINTENANCE Final Result from Last 3 Months or Most Recently Relevant to Health Maintenance Insurance MEDICARE [facility] Care Teams Flame Channeler Relationship Specialty Start Date End Date Nydia Rai MD [address] [place] [id number] PCP - General 12/18/1995
--- OUTSIDE RECORDS SUMMARY | 2024-10-20 13:41 | XMS_ITS | Encounter Summary ---
Author Organization [facility] Address [address] [place] [address] Care Team Providers Care Block Splitter Operator Name Role Phone Nydia Rai MD Primary Care Provider [phone] Reason for Visit * Reason Onset Date Comments medical records 09/19/2024 Encounter Details Date Type Department Care Team (Late st Contact Info) Description 09/19/2024 Telephone [facility] Cardiology [facility] [address] [place] [phone] Donavon Aguiar NP [address] [place] [address] Dr [address] [place] [address] medical records Social History Tobacco Use Types [...] encounter Progress Notes * Pamela Shaffer - 09/26/2024 8:27 AM EDT Marsha from [facility] called, for some reason they did not receive these records. Please resend as soon as possible today and include the echo from 09/11/24. * Pamela Shaffer - 09/19/2024 1:19 PM EDT Medical Records Request Caller: Reynaldo Calling from: [facility] Requesting provider's first & last name: Dr. Hinojosa Direct Phone Number or Ext: [phone] What records are being requested: office notes How far back: 09/11/24 What is it for: surgery clearance Needed by: tuan documented in this encounter Plan of Treatment Upcoming Encounters Date Type Department Care Team (Late st Contact Info) Description 11/18/2024 9:00 AM EDT Office Visit Orthopedic Surgery - [place] [address] [phone] Sergio Carrillo DPPaige [address] [address] 01/05/2025 9:00 AM EDT Office Visit Adult Medicine - [place] [address] [place] [address] Nydia Rai MD [address] [place] [address] 04/03/2025 2:40 PM EDT Office Visit [facility] - [facility] [place] [address] [place] [address] Donavon Aguiar NP [address] [place] [address] Dr [address] [place] [address] documented as of this encounter Visit Diagnoses Not on filedocumented in this encounter Care Teams Block Splitter Operator Relationship Specialty Start Date End Date Nydia Rai MD [address] [place] [address] PCP - General 12/18/1995 documented as of this encounter
== END 2024-10-20 11:38 | disposition home or self-care (01) ==
LOC: HO.HGS 11:20
PROVIDERS: PCP Pediatrics; Visit Provider Physician Assistant Surgical
DX: Z98.890 Other specified postprocedural states (principal); Z85.828 Personal history of other malignant neoplasm of skin
CPT/HCPCS: 99024

== ENCOUNTER → 2024-10-20 11:19 | Outpatient (BNVA) | payer MEDICARE, SELFPAY | PROVIDERS: PCP Pediatrics; Visit Provider Physician Assistant Surgical | DX: Z48.3 Aftercare following surgery for neoplasm (principal); Z85.828 Personal history of other malignant neoplasm of skin | CPT/HCPCS: 99212 ==

== ENCOUNTER 2024-10-27 10:53 | Outpatient (AMB) | payer MEDICARE, SELFPAY ==
--- NOTE | 2024-10-27 10:54 | MHC.OFFVIS ---
Vital Signs 10/27/24 11:04 Weight 180 lb BP 118/68 Blood Pressure Location Rt brachial Position Sitting Pulse 68 Intake Visit Reasons: S/P WLE~ BCC Rt lower leg Intake Note: Patient here for 1wk follow up wide local excision of basal cell carcinoma on Rt lower leg. Reports incision healing well. Patient c/o: no concerns. Steri strips in place. Laceworker Required: No Accompanied by: Spouse Allergies No Known Allergies [No Known Allergies*] Allergy (Verified 10/27/24 11:04) HPI Comments Details: Mr. Hoffman presents for a wound check. He underwent wide local excision right lower leg tumor on 10/10/[address] Hinojosa. Pathology revealed BCC with clear margins, again reviewed. He reports no pain at the incision site. He denies redness, drainage at wound. He is ambulating with his cane without difficulty. He and his have no concerns but are asking about resuming PT. 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 Social History Are you a primary medicare contact specialist to a significant other at home: No Do you presently have visiting nurse or other home services: No Alcohol intake: current Alcohol intake frequency: does not drink Alcohol type: wine Comment: advised of trip hazard Patient Tobacco Use Status: Former Tobacco user Tobacco use type: Cigarette Years Smoked: 3 Review of Systems Const Denies chills and Denies fever(s) Skin/Breast Reports as per HPI and Denies rash Physical Exam Vital Signs: Last Vital Signs Pulse 68 10/27/24 11:04 BP 118/68 10/27/24 11:04 Const General: comfortable, no acute distress and alert Orientation/consciousness: patient oriented x3 Resp Effort & Inspection: normal respiratory effort Skin General skin exam: no rashes or lesions noted Neuro General: patient oriented x3 and moves all extremities Extrem Other: anterior right lower leg- steri strips removed, incision is well approximated and well healed, small amount of dry blood present, no active bleeding or drainage, no erythema or edema Assessment & Plan Assessment & Plan (1) H/O basal cell carcinoma excision: Code(s): Z98.890 - Other specified postprocedural states; Z85.828 - Personal history of other malignant neoplasm of skin Category: Surgical Plan His wound is well healed without evidence of infection. Discussed he can gradually resume his PT as tolerated. He will need follow up with his PCP or pure pak machine operator in 6 months regarding his basal cell carcinoma. Coding Level of Care Code Global (06539) Diagnoses H/O basal cell carcinoma excision Z98.890; Z85.828
[2024-10-27 11:04] VITALS: BP 118/68; PULSE 68
--- OUTSIDE RECORDS SUMMARY | 2024-10-27 12:28 | XMS_ITS | Clinical Summary ---
Author Organization [facility] [address] [facility] Address [address] [place] [address] Phone Care Team Providers Care Winding Operator Name Role Phone Nydia Rai MD Primary Care Provider [phone] Allergies Active Allergy Reactions Criticality Noted Date [...] type, unspecified whether angina present, unspecified whether [place] or transplanted heart Take 1 tablet (80 mg total) by mouth 1 (one) time each day. 90 tablet 3 5 Active metoprolol succinate (TOPROL-XL) 25 mg 24 hr tabletIndication s:Coronary artery disease, unspecified vessel or lesion type, unspecified whether angina present, unspecified whether [place] or transplanted heart Take 0.5 tablets (12.5 [...] x 4 07/05/2022 Overview (09/03/2023): [place] [facility] [place] with Raphael Barton - indications: CAD, NSTEMI SVT (supraventricular tachycardia) ([facility]/HCC V24) 07/05/2022 NSTEMI (non-ST elevated myoc [...] neg (7 mets), CT neg. H/O agent [place] exposure 11/28/2016 Ascending aorta dilation ([facility] V24) 7 Overview (09/03/2023): Seen on echocardiogram. [...] Type Department Care Team Description 09/26/2024 Telephone [facility] Cardiology [facility] [address] [place] [address] [address] [place] [address] Nydia Rai MD Medical Records 09/26/2024 Telephone [facility] Cardiology [facility] Dr [address] [facility] [address] [place] [address] Nydia Rai MD Medical Records 09/19/2024 Telephone [facility] [address] [facility] [address] [place] [address] Donavon Aguiar NP medical records 09/18/2024 Telephone [facility] Cardiology [facility] [address] [place] [address] Donavon Aguiar NP echo results 09/11/2024 2:30 PM EDT Ancillary Procedure [facility] Cardiology [facility] [address] [place] [address] Coronary artery disease, unspecified vessel or lesion type, unspecified whether angina present, unspecified whether [place] or transplanted heart 09/11/2024 12:40 PM EDT Consult [facility] [address] [facility] [address] [place] [address] Donavon Aguiar NP Preop cardiovascular exam (Primary Dx); Coronary artery disease, unspecified vessel or lesion type, unspecified whether angina present, unspecified whether [place] or transplanted heart; Pure hypercholesterolemia 08/26/2024 9:45 AM EST Office Visit Adult Medicine [facility] [address] [place] [phone] William Sandoval PA Stiffman syndrome (Primary Dx); Pain of right lower extremity; S/P CABG x 4; Gastroesophageal reflux disease, unspecified whether esophagitis present; Abnormal CBC; H/O agent [place] exposure; Pure hypercholesterolemia; Other polyneuropathy; Basal cell carcinoma, leg, right 08/26/2024 Telephone [facility] [address] [place] [address] William Sandoval PA 08/21/2024 2:30 PM EST Office Visit Orthopedic Surgery - [place] [address] [place] [phone] Sergio Carrillo DPM Acquired hammer toe of right foot (Primary Dx); Dermatophytosis of nail; Pain in toe of right foot; Pain in toe of left foot; Stiff-man syndrome; Difficulty walking 08/21/2024 Telephone [facility] [address] [place] [address] Dejuan Joyce MD Pre-operative Clearance 08/21/2024 Telephone [place] [address] [place] [address] Nydia Rai MD Faxed Order PT Re-Evaluation 07/24/2024, 07/29/2024 from Last 3 Months Surgical History Surgery Date Site/Laterality Comments COLONOSCOPY 12/03/2012 PROCEDURE: HISTORICAL COLONOSCOPY; COMMENT: adenomas; repeat in 3 yrs COLONOSCOPY 01/12/2017 PROCEDURE: HISTORICAL COLONOSCOPY; COMMENT: adenoma and tics; repeat in 5 yrs OTHER SURGICAL HISTORY PROCEDURE: HISTORICAL MELANOMA ESOPHAGOGASTRODUODENOSCOPY PROCEDURE: AL EGD TRANSORAL BIOPSY SINGLE/MULTIPLE; COMMENT: Performed in [...] med, sx recurred---need chronic omeprazole H/O agent [place] exposure 11/28/2016 DX:H/O agent [place] exposure History of basal cell carcinoma 02/06/2011 [...] AM EDT Office Visit [facility] [place] [address] [facility] [address] [place] [address] Sergio Carrillo, DPM [address] [address] 01/05/2025 9:00 AM EDT Office Visit Adult Medicine [facility] [address] [place] [phone] Nydia Rai MD [address] [place] [address] 04/03/2025 2:40 PM EDT Office Visit [facility] [place] [address] [place] [phone] Donavon Aguiar NP [address] [place] [address] [place] [address] Health Maintenance Due Date Last Done Comments [...] type, unspecified whether angina present, unspecified whether [place] or transplanted heart ECG 12-LEAD Routine 09/11/2024 2:03 PM EDT Coronary artery disease, unspecified vessel or lesion type, unspecified whether angina present, unspecified whether [place] or transplanted heart CBC WITH AUTO DIFFERENTIAL [...] (09/11/2024 3:29 PM EDT) Left [facility] [place] 6.2 cm CV PACS LA Area Sys [...] Volume 76 mL CV PACS MV Deceleration [place] 2.4 m/s2 CV PACS E Wave Deceleration [...] S' 6 cm/s CV PACS RA [place] 5.8 cm CV PACS RA [place] Index 2.9(A) 2.1 - 2.7 cm/m2 CV [...] GEMUSE QTc 387 ms GEMUSE P Wave [place] 55 degrees GEMUSE R [place] 14 degrees GEMUSE T [place] 56 degrees GEMUSE ECG Interpretation Sinus rhythm [...] LAB CHEMISTRY METHOD 08/26/2024 1:15 PM EST [facility] Triglycerides 78 0 - 150 mg/dL LAB CHEMISTRY METHOD 08/26/2024 1:15 PM EST [facility] HDL 53 >=40 mg/dL LAB CHEMISTRY METHOD 08/26/2024 1:15 PM EST [facility] LDL Calculated 68 0 - 100 mg/dL LAB CHEMISTRY METHOD 08/26/2024 1:15 PM EST [facility] VLDL Cholesterol [place] 15.6 mg/dL LAB [...] MATHIS LAB BLOOD ORDERABLES Final Res ult [facility] [address] [place] [address], * (ABNORMAL) CBC auto differential (08/26/2024 10:44 AM EST) WBC 4.0(L) 4.8 - 10.8 [facility] LAB HEMETOLOGY METHOD 08/26/2024 12:45 PM [...] LAB HEMETOLOGY METHOD 08/26/2024 12:45 PM EST [facility] Lymphocytes Absolute 1.18 1.00 - 5.00 K/[facility] LAB HEMETOLOGY METHOD 08/26/2024 12:45 PM [facility] Monocytes Absolute 0.52 0.20 - 1.00 K/mcL LAB HEMETOLOGY METHOD 08/26/2024 12:45 PM EST [facility] Eosinophils Absolute 0.19 0.00 - 0.50 [facility] LAB HEMETOLOGY METHOD 08/26/2024 12:45 PM [facility] Basophils Absolute 0.03 0.00 - 0.20 K/[facility] LAB HEMETOLOGY METHOD 08/26/2024 12:45 PM [facility] Immature Granulocytes Absolute 0.01 0.00 - 0.03 [facility] LAB HEMETOLOGY METHOD 08/26/2024 12:45 PM [facility] Blood Venous blood specimen / Unknown Venipuncture / Unknown 08/26/2024 10:44 AM EST 08/26/2024 10:44 AM EST us William MATHIS LAB BLOOD ORDERABLES Final Res ult [facility] [address] [place] [address], * (ABNORMAL) Comprehensive metabolic panel (08/26/2024 10:44 AM EST) Sodium 141 133 - 145 mmol/L LAB CHEMISTRY METHOD 08/26/2024 1:15 PM [facility] Potassium 4.3 3.5 - 5.5 mmol/L LAB CHEMISTRY METHOD 08/26/2024 1:15 PM [facility] Chloride 105 96 - 110 mmol/L LAB CHEMISTRY METHOD 08/26/2024 1:15 PM EST [facility] CO2 30 21 - 32 mmol/L [...] LAB CHEMISTRY METHOD 08/26/2024 1:15 PM EST [facility] Blood Venous blood specimen / Unknown Venipuncture / Unknown 08/26/2024 10:44 AM EST 08/26/2024 10:44 AM EST William MATHIS LAB BLOOD ORDERABLES Final Res ult [facility] [address] [place] [address], [place] [phone] * Colonoscopy (01/12/2017) [facility] Colonoscopy return in 5 years Anatomical Region Laterality Modality Other Historical Provider HEALTH MAINTENANCE Final Result * Hepatitis C Screening (06/16/2013) [facility] Hepatitis C Screening negative Historical Provider HEALTH MAINTENANCE Final Result from Last 3 Months or Most Recently Relevant to Health Maintenance Insurance MEDICARE [facility] Care Teams Winding Operator Relationship Specialty Start Date End Date Nydia Rai MD [address] [place] [id number] PCP - General 12/18/1995
== END 2024-10-27 11:13 | disposition home or self-care (01) ==
LOC: HO.HGS 10:53
PROVIDERS: PCP Pediatrics; Visit Provider Physician Assistant Surgical
DX: Z98.890 Other specified postprocedural states (principal); Z85.828 Personal history of other malignant neoplasm of skin
CPT/HCPCS: 99024

== ENCOUNTER → 2024-10-27 10:53 | Outpatient (BNVA) | payer MEDICARE, SELFPAY | PROVIDERS: PCP Pediatrics; Visit Provider Physician Assistant Surgical | DX: Z48.3 Aftercare following surgery for neoplasm (principal); Z98.890 Other specified postprocedural states; Z85.828 Personal history of other malignant neoplasm of skin | CPT/HCPCS: 99212 ==